=== PATIENT | female | born 1990 | race Caucasian/White ===

== ENCOUNTER 2018-01-26 08:48 | Outpatient (CLI) | payer OTHER ==
[2018-01-26] MEDS ORDERED: IOTHALAMATE MEGLUMINE 50 ML VIAL ONE (09:17)
[2018-01-26] MEDS ORDERED: GADOPENTETATE DIMEGLUMINE 5 ML VIAL IVP ONE ×2 (09:17→10:13)
[2018-01-26] MEDS ORDERED: BUFFERED LIDOCAINE 10 ML SYRINGE IU ONE (10:13)
[2018-01-26] MEDS ORDERED: IOTHALAMATE MEGLUMINE 50 ML VIAL IVP ONE (10:13)
--- NOTE | 2018-01-26 14:15 | MRI Report ---
EXAM: RIGHT SHOULDER MRI ARTHROGRAM WITH CONTRAST EXAM DATE: 01/26/2018 10:39 AM. CLINICAL HISTORY: Right shoulder pain after lifting 35 pounds. Maverick a pop. Pain with abduction. COMPARISON: None. TECHNIQUE: Multiplanar, multisequence T1-weighted and fluid-sensitive sequences of the shoulder after an arthrographic injection of dilute gadolinium, dictated under a separate exam. Other: None. FINDINGS: Acromioclavicular Region: The acromion is type II. The acromioclavicular joint is unremarkable. Ther e is no contrast or fluid in the subacromial/subdeltoid bursa. Glenohumeral Region: No subluxation. No loose bodies. The articular cartilage is unremarkable. Bone Marrow: No fracture, marrow edema or bone lesions. Labrum: The labrum is unremarkable. Biceps Tendon: The long head of the biceps tendon and biceps dickson are intact. Musculature/Rotator Cuff: The subscapularis, supraspinatus, infraspinatus, and teres minor tendons ar e intact. No edema or fatty atrophy. Other: The subcutaneous tissues are unremarkable. IMPRESSION: No MRI abnormalities in the shoulder. [facility] MUSCULOSKELETAL RADIOLOGY SECTION Referring Provider Line: [phone] SITE ID: [id number]
--- NOTE | 2018-01-26 19:59 | XRAY Report ---
RIGHT SHOULDER ARTHROGRAM PRIOR TO MRI: 01/26/2018 PROCEDURE: The nature and goals of the procedure were reviewed with the patient. The risks of infection and mild aching following the procedure were reviewed. Informed consent was obtained. Following fluoroscopic localization, sterile prep, and 1% Xylocaine/sodium bicarbonate anesthesia, a 22 gauge spinal needle was placed into the shoulder joint without difficulty. Utilizing fluoroscopic assessment and ease of injection as a guide, the standard gadolinium solution was instilled without difficulty. The patient tolerated the procedure quite well and was sent to the MR center for imaging. CONCLUSION: SUCCESSFUL RIGHT SHOULDER INJECTION PRIOR TO MRI USING 37 SECONDS OF FLUOROSCOPY TIME. ONE IMAGE SAVED. TD: 01/26/2018 16:20 LUCY
== END 2018-01-26 08:49 | disposition home or self-care (01) ==
LOC: DI 08:48
PROVIDERS: ATTEND General Practice
DX: M25.511 Pain in right shoulder (principal)
CPT/HCPCS: 23350; 73222; 77002; Q9961

== ENCOUNTER 2018-11-05 12:26 | Emergency (ER) | payer OTHER ==
[2018-11-05 12:56] LABS: BILIRUBIN,URINE NEGATIVE (NEGATIVE); GLUCOSE, URINE (UA) NEGATIVE (NEGATIVE); KETONES,URINE (UA) NEGATIVE (NEGATIVE); LEUKOCYTE ESTERASE, URINE NEGATIVE (NEGATIVE); NITRITE,URINE NEGATIVE (NEGATIVE); OCCULT BLOOD,URINE NEGATIVE (NEGATIVE); PROTEIN,URINE NEGATIVE (NEGATIVE); UROBILINOGEN,URINE 0.2 (NORMAL) E.U./dL (NORMAL)
[2018-11-05 13:02] LABS: CLARITY,URINE CLEAR (CLEAR)
[2018-11-05 13:12] LABS: BASOPHILS # (AUTO) 0.1 10^3/uL (0.0-0.1); BASOPHILS % (AUTO) 1.3 %; EOSINOPHILS # (AUTO) 0.6 10^3/uL (0.0-0.7); EOSINOPHILS % (AUTO) 7.2 %; LYMPHOCYTES # (AUTO) 2.4 10^3/uL (1.5-3.5); LYMPHOCYTES % (AUTO) 27.9 %; MEAN CORPUSCULAR HGB CONC 34.5 g/dL (32.0-36.0); MEAN CORPUSCULAR VOLUME 92.7 fL (81.0-99.0); MEAN PLATELET VOLUME 7.7 fL (7.9-10.8); MONOCYTES # (AUTO) 0.6 10^3/uL (0.0-1.0); MONOCYTES % (AUTO) 6.6 %; NEUTROPHILS # (AUTO) 4.9 10^3/uL (1.5-6.6); PLT - PLATELET COUNT 309 10^3/uL (130-450); RED BLOOD COUNT 4.37 10^6/uL (4.20-5.40); RED CELL DISTRIBUTION WIDTH 12.3 % (12.0-15.0); WHITE BLOOD COUNT 8.6 x10^3/uL (4.8-10.8)
[2018-11-05 13:26] LABS: ALBUMIN 4.3 g/dL (3.2-5.5); ALBUMIN/GLOBULIN RATIO 1.3 (1.0-2.2); BILIRUBIN,TOTAL 0.6 mg/dL (0.2-1.0); CREATININE 0.6 mg/dL (0.4-1.0); TOTAL PROTEIN 7.6 g/dL (6.7-8.2)
--- NOTE | 2018-11-05 15:18 | ED Physician Documentation ---
PD HPI FEMALE - Stated complaint Stated Complaint: BLEEDING/CRAMPING 6WKS PREG - Chief complaint Chief Complaint: Abd Pain - History obtained from History obtained from: Patient - History of Present Illness Timing - onset: Yesterday Timing - duration: Days (2) Timing - details: Gradual onset Pain level max: 0 Pain level max: 0 Associated symptoms: Pelvic pain (cramping), Vaginal bleeding. 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 She thinks she is about 4-6 weeks along. She may have had a miscarriage in August but is unsure. Increasing bleeding today. Nothing makes it better or worse. Review of Systems Ten Systems: 10 systems reviewed and negative Constitutional: denies: Fever, Chills Respiratory: denies: Cough GI: denies: Nausea, Vomiting, Diarrhea : denies: Dysuria, Frequency, Hesitancy Skin: denies: Rash Musculoskeletal: denies: Neck pain, Back pain Neurologic: denies: Headache PD PAST MEDICAL HISTORY - Past Medical History Past Medical History: Yes Endocrine/Autoimmune: HyPOthyroidism - Past Surgical History Past Surgical History: Yes HEENT: Tonsil/Adenoidectomy - Present Medications Home Medications: Ambulatory Orders Medication Instructions Recorded Confirmed Levothyroxine Sodium [Synthroid] 100 mcg PO DAILY 07/08/16 11/05/18 - Allergies Allergies/Adverse Reactions: Allergies Allergy/AdvReac Type Severity Reaction Status Date / Time No Known Drug Allergies Allergy Verified 11/05/18 15:17 - Social History Does the pt smoke?: Yes Smoking Status: Current every day smoker Does the pt drink ETOH?: Yes Does the pt have substance abuse?: No - Immunizations Immunizations are current?: Yes - POLST Patient has POLST: No PD ED PE NORMAL - Vitals Vital signs reviewed: Yes - General General: Alert and oriented X 3, No acute distress, Well developed/nourished - HEENT HEENT: Moist mucous membranes - Neck Neck: Supple, no meningeal sign - Cardiac Cardiac: RRR, Strong equal pulses - Respiratory Respiratory: No respiratory distress, Clear bilaterally - Abdomen Abdomen: Soft, Non tender, Non distended - Female Female : Pt declined - Back Back: No CVA TTP, No spinal TTP - Derm Derm: Warm and dry, No rash - Extremities Extremities: No edema - Neuro Neuro: Alert and oriented X 3 - Psych Psych: Normal mood, Normal affect Results - Vitals Vitals: Vital Signs - 24 hr 11/05/18 11/05/18 12:35 15:28 Temperature 36.6 C Heart Rate 103 H 64 Respiratory 16 14 Rate Blood Pressure 99/72 116/73 O2 Saturation 100 100 Oxygen O2 Source Room air - Labs Labs: Laboratory Tests 11/05/18 11/05/18 11/05/18 12:46 13:00 13:00 WBC 8.6 RBC 4.37 Hgb 14.0 Hct 40.5 MCV 92.7 MCH 32.0 H MCHC 34.5 RDW 12.3 Plt Count 309 MPV 7.7 L Neut # (Auto) 4.9 Lymph # (Auto) 2.4 [place] # (Auto) 0.6 Eos # (Auto) 0.6 Baso # (Auto) 0.1 Absolute Nucleated RBC 0.00 Nucleated RBC % 0.0 Sodium 129 L Potassium 3.5 Chloride 96 L Carbon Dioxide 26 Anion Gap 7.0 BUN 7 Creatinine 0.6 Estimated GFR (MDRD) 121 Glucose 92 Calcium 9.0 Total Bilirubin 0.6 AST 23 ALT 19 Alkaline Phosphatase 39 L Total Protein 7.6 Albumin 4.3 Globulin 3.3 Albumin/Globulin Ratio 1.3 Lipase 44 HCG, Quant Urine Color YELLOW Urine Clarity CLEAR Urine pH 7.0 Ur Specific [place] 1.015 Urine Protein NEGATIVE Urine Glucose (UA) NEGATIVE Urine Ketones NEGATIVE Urine Occult Blood NEGATIVE Urine Nitrite NEGATIVE Urine Bilirubin NEGATIVE Urine Urobilinogen 0.2 (NORMAL) Ur Leukocyte Esterase NEGATIVE Ur Microscopic Review NOT INDICATED Urine Culture Comments NOT INDICATED Blood Type Antibody Screen 11/05/18 11/05/18 13:00 13:00 WBC RBC Hgb Hct MCV MCH MCHC RDW Plt Count MPV Neut # (Auto) Lymph # (Auto) [place] # (Auto) Eos # (Auto) Baso # (Auto) Absolute Nucleated RBC Nucleated RBC % Sodium Potassium Chloride Carbon Dioxide Anion Gap BUN Creatinine Estimated GFR (MDRD) Glucose Calcium Total Bilirubin AST ALT Alkaline Phosphatase Total Protein Albumin Globulin Albumin/Globulin Ratio Lipase HCG, Quant 09794.00 Urine Color Urine Clarity Urine pH Ur Specific [place] Urine Protein Urine Glucose (UA) Urine Ketones Urine Occult Blood Urine Nitrite Urine Bilirubin Urine Urobilinogen Ur Leukocyte Esterase Ur Microscopic Review Urine Culture Comments Blood Type O POSITIVE Antibody Screen NEGATIVE - Rads (name of study) OB US Radiology: Prelim report reviewed, EMP read contemporaneously, See rad report (Single intrauterine gestation of undetermined viability. No pole visible. Recommend correlation with serial beta hCG and short interval follow-up ultrasound to assess viability. 2. Estimated gestational age by mean sac diameter of 5 weeks 0 days discordant with clinical dates estimation by last menstrual period of 6 weeks 5 days. 3. No evidence of perigestational hemorrhage. 4. Normal maternal adnexa. ) PD MEDICAL DECISION MAKING - ED course Complexity details: reviewed results, re-evaluated patient, considered differential, d/w patient ED course: 28-year-old female presents to the emergency department with a threatened versus miscarriage versus early . Her hCG is 15,000, she will need serial quant to determine if it is rising or falling. Also was recommended to have a repeat ultrasound next week. Ectopic precautions given at bedside. Patient counseled regarding signs and symptoms for which I believe and urgent re-evaluation would be necessary. Patient with good understanding of and agreement to plan and is comfortable going home at this time This document was made in part using voice recognition software. While efforts are made to proofread this document, sound alike and grammatical errors may occur. Departure - Departure Disposition: 01 Home, Self Care Clinical Impression: Threatened affecting intrauterine Condition: Good Instructions: ED Miscarriage Poss Follow-Up: Nishi Gould, CHAIRMAN [Primary Care Provider] - (within 2 days.) Comments: You need a repeat hCG in 2-3 days to see if your levels are going up or down. There are approximately 15,000 today. Your ultrasound may be consistent with an early but also may be consistent with a miscarriage. You should have a repeat ultrasound next week as well. Return if you worsen Discharge Date/Time: 11/05/18 15:42
--- NOTE | 2018-11-05 15:23 | Ultrasound Report ---
Reason: 6 weeks preg, vag bleed Procedure Date: 11/05/2018 Accession Number: [id number] / [id number] Procedure: US - OB First Trimester CPT Code: FULL RESULT: EXAM: FIRST TRIMESTER OBSTETRIC ULTRASOUND (Less than 11 weeks) EXAM DATE: 11/05/2018 03:04 PM. CLINICAL HISTORY: 6 weeks , vaginal bleed. LMP: 09/19/2018. COMPARISONS: None. TECHNIQUE: Transabdominal and transvaginal ultrasound examination with static image documentation. CLINICAL DATES: EGA 6 weeks 5 days with MARIAM 06/26/2019 based on last menstrual period. ASSESSMENT: Gestational Sac: Single intrauterine. Mean gestational sac diameter: 10 mm = 5 weeks 0 days. Embryo: No visible pole Yolk sac: 2 mm. Amniotic fluid: Not accurately assessed at this gestational age. Early placenta: Not visible at this gestational age. Other: No perigestational fluid collection demonstrated. MATERNAL STRUCTURES: Uterus: Retroverted. Unremarkable. Cervix: Closed. Right Ovary/Adnexa: The ovary measures 3.5 x 1.9 x 2.6 cm, volume 9.2 cc. Unremarkable. Left Ovary/Adnexa: The ovary measures 3.4 x 1.9 x 2.7 cm, volume 9.3 cc. Unremarkable. Free Fluid: None. Other: None. IMPRESSION: 1. Single intrauterine gestation of undetermined viability. No pole visible. Recommend correlation with serial beta hCG and short interval follow-up ultrasound to assess viability. 2. Estimated gestational age by mean sac diameter of 5 weeks 0 days discordant with clinical dates estimation by last menstrual period of 6 weeks 5 days. 3. No evidence of perigestational hemorrhage. 4. Normal maternal adnexa. [facility]
[2018-11-05 15:29] VITALS: BP 116/73
== END 2018-11-05 15:42 | disposition home or self-care (01) ==
LOC: ED 12:26
DX: O20.0 Threatened abortion (principal); Z3A.01 Less than 8 weeks gestation of pregnancy; F17.200 Nicotine dependence, unspecified, uncomplicated
CPT/HCPCS: 36415; 76801; 76817; 80053; 81001; 81003; 83690; 84702; 85025; 86850; 86900; 86901; 87086; 99283; 99284

== ENCOUNTER 2019-01-28 15:05 | Emergency (ER) | payer OTHER ==
--- NOTE | 2019-01-28 15:41 | ED Physician Documentation ---
History of Present Illness - Stated complaint Stated Complaint: PREG/N SYNCOPE - Chief complaint Chief Complaint: General - History obtained from History obtained from: Patient - History of Present Illness Timing: Today (G2, P1 at 18 weeks gestation, she was standing and ranks and started to feel dizzy and lightheaded and sweaty and had to sit down. And she had 3 drops of vaginal bleeding less likely urinary bleeding with urination. Now feels fine. No full syncope episode.) Review of Systems Constitutional: denies: Fever, Chills Cardiac: denies: Chest pain / pressure, Palpitations Respiratory: denies: Dyspnea, Cough GI: reports: Nausea. denies: Abdominal Pain, Vomiting, Diarrhea PD PAST MEDICAL HISTORY - Past Medical History Cardiovascular: None Respiratory: None Neuro: None Endocrine/Autoimmune: HyPOthyroidism GI: None HOSPITALITY RECRUITER: None : None HEENT: None Psych: None Musculoskeletal: None Derm: None - Past Surgical History Past Surgical History: Yes HEENT: Tonsil/Adenoidectomy - Present Medications Home Medications: Ambulatory Orders Medication Instructions Recorded Confirmed Levothyroxine Sodium [Synthroid] 100 mcg PO DAILY 07/08/16 11/05/18 - Allergies Allergies/Adverse Reactions: Allergies Allergy/AdvReac Type Severity Reaction Status Date / Time No Known Drug Allergies Allergy Verified 11/05/18 15:17 - Social History Does the pt smoke?: Yes Smoking Status: Current every day smoker Does the pt drink ETOH?: Yes Does the pt have substance abuse?: No - Immunizations Immunizations are current?: Yes - POLST Patient has POLST: No PD ED PE NORMAL - Vitals Vital signs reviewed: Yes - General General: Alert and oriented X 3, No acute distress - HEENT HEENT: PERRL, EOMI - Neck Neck: Supple, no meningeal sign, No bony TTP - Cardiac Cardiac: RRR, No murmur - Respiratory Respiratory: No respiratory distress, Clear bilaterally - Abdomen Abdomen: Normal bowel sounds, Soft, Non tender - Female Female : Other (Bedside ultrasound showed single live intrauterine with heart rate 165) - Back Back: No CVA TTP, No spinal TTP - Extremities Extremities: No edema, No calf tenderness / cord - Neuro Neuro: Alert and oriented X 3, Normal speech Results - Vitals Vitals: Vital Signs - 24 hr 01/28/19 01/28/19 15:08 17:08 Temperature 36.3 C L Heart Rate 100 83 Respiratory 16 18 Rate Blood Pressure 117/72 98/65 O2 Saturation 100 100 Oxygen O2 Source Room air - EKG (time done) 1520 Rate: Rate (enter#) (90) Rhythm: NSR [place]: Normal Intervals: Normal MD QRS: Normal Ischemia: Normal ST segments Computer interpretation: Agree with computer - Labs Labs: Laboratory Tests 01/28/19 01/28/19 01/28/19 15:54 15:54 16:00 WBC 11.6 H RBC 3.52 L Hgb 11.1 L Hct 32.3 L MCV 91.7 MCH 31.6 H MCHC 34.4 RDW 13.3 Plt Count 248 MPV 7.7 L Neut # (Auto) 8.1 H Lymph # (Auto) 2.0 [place] # (Auto) 0.8 Eos # (Auto) 0.7 Baso # (Auto) 0.0 Absolute Nucleated RBC 0.00 Nucleated RBC % 0.0 Sodium 135 Potassium 3.5 Chloride 104 Carbon Dioxide 22 Anion Gap 9.0 BUN 7 Creatinine 0.4 Estimated GFR (MDRD) 193 Glucose 96 Calcium 8.5 Total Bilirubin 0.4 AST 19 ALT 27 Alkaline Phosphatase 39 L Total Protein 6.4 L Albumin 3.3 Globulin 3.1 Albumin/Globulin Ratio 1.1 Lipase 46 Urine Color YELLOW Urine Clarity CLEAR Urine pH 7.0 Ur Specific [place] 1.015 Urine Protein NEGATIVE Urine Glucose (UA) NEGATIVE Urine Ketones NEGATIVE Urine Occult Blood NEGATIVE Urine Nitrite NEGATIVE Urine Bilirubin NEGATIVE Urine Urobilinogen 0.2 (NORMAL) Ur Leukocyte Esterase NEGATIVE Ur Microscopic Review NOT INDICATED Urine Culture Comments NOT INDICATED PD MEDICAL DECISION MAKING - ED course ED course: 28-year-old woman woman had near syncope while standing at attention, otherwise benign history and physical with reassuring ultrasound and labs and EKG. Departure - Departure Disposition: 01 Home, Self Care Clinical Impression: , Near syncope Condition: Good Record reviewed to determine appropriate education?: Yes Instructions: ED Near Syncope Vasovagal Comments: Drink plenty fluids, return for new or worsening symptoms. Rest for the rest of the day. Discharge Date/Time: 01/28/19 17:09
[2019-01-28 16:12] LABS: BILIRUBIN,URINE NEGATIVE (NEGATIVE); GLUCOSE, URINE (UA) NEGATIVE (NEGATIVE); KETONES,URINE (UA) NEGATIVE (NEGATIVE); LEUKOCYTE ESTERASE, URINE NEGATIVE (NEGATIVE); NITRITE,URINE NEGATIVE (NEGATIVE); OCCULT BLOOD,URINE NEGATIVE (NEGATIVE); PROTEIN,URINE NEGATIVE (NEGATIVE); UROBILINOGEN,URINE 0.2 (NORMAL) E.U./dL (NORMAL)
[2019-01-28 16:13] LABS: CLARITY,URINE CLEAR (CLEAR)
[2019-01-28 16:14] LABS: BASOPHILS % (AUTO) 0.4 %; EOSINOPHILS # (AUTO) 0.7 10^3/uL (0.0-0.7); EOSINOPHILS % (AUTO) 6.1 %; HGB - HEMOGLOBIN 11.1 g/dL (12.0-16.0); LYMPHOCYTES % (AUTO) 16.9 %; MEAN CORPUSCULAR HEMOGLOBIN 31.6 pg (27.0-31.0); MEAN CORPUSCULAR HGB CONC 34.4 g/dL (32.0-36.0); MEAN CORPUSCULAR VOLUME 91.7 fL (81.0-99.0); MEAN PLATELET VOLUME 7.7 fL (7.9-10.8); MONOCYTES # (AUTO) 0.8 10^3/uL (0.0-1.0); MONOCYTES % (AUTO) 7.2 %; NEUTROPHILS # (AUTO) 8.1 10^3/uL (1.5-6.6); NEUTROPHILS % (AUTO) 69.4 %; PLT - PLATELET COUNT 248 10^3/uL (130-450); RED BLOOD COUNT 3.52 10^6/uL (4.20-5.40); RED CELL DISTRIBUTION WIDTH 13.3 % (12.0-15.0); WHITE BLOOD COUNT 11.6 x10^3/uL (4.8-10.8)
[2019-01-28 16:26] LABS: ALBUMIN 3.3 g/dL (3.2-5.5); ALBUMIN/GLOBULIN RATIO 1.1 (1.0-2.2); BILIRUBIN,TOTAL 0.4 mg/dL (0.2-1.0); CALCIUM 8.5 mg/dL (8.5-10.3); CREATININE 0.4 mg/dL (0.4-1.0); TOTAL PROTEIN 6.4 g/dL (6.7-8.2)
[2019-01-28 17:09] VITALS: BP 98/65
== END 2019-01-28 17:09 | disposition home or self-care (01) ==
LOC: ED 15:05
DX: O99.89 Other specified diseases and conditions complicating pregnancy, childbirth and the puerperium (principal); R55 Syncope and collapse; O99.282 Endocrine, nutritional and metabolic diseases complicating pregnancy, second trimester; E03.9 Hypothyroidism, unspecified; O99.332 Smoking (tobacco) complicating pregnancy, second trimester; F17.200 Nicotine dependence, unspecified, uncomplicated; Z3A.18 18 weeks gestation of pregnancy
CPT/HCPCS: 36415; 80053; 81001; 81003; 83690; 85025; 87086; 93005; 99283

== ENCOUNTER 2019-03-12 09:41 | Outpatient (CLI) | payer OTHER ==
[2019-03-12 10:42] VITALS: BP 100/61
--- NOTE | 2019-03-12 11:18 | PROVIDER PROGRESS NOTE ---
- HPI Current : Current EDU 07/04/19 Gestation 23 Weeks and 5 Days 2 Para 1 Vital Signs Temperature 36.9 C 03/12/19 10:29 Heart Rate 92 03/12/19 10:29 Respiratory Rate 16 03/12/19 10:29 Blood Pressure 100/61 03/12/19 10:29 O2 Saturation 100 03/12/19 10:29 Temperature 36.9 C 03/12/19 10:29 Heart Rate 92 03/12/19 10:29 Respiratory Rate 16 03/12/19 10:29 Blood Pressure 100/61 03/12/19 10:29 O2 Saturation 100 03/12/19 10:29 Chief complaint: Intrauterine at 23 weeks and 5 days gestation to cramping History chief complaint: This is well-developed, well-nourished, 28-year-old white female who is 2 para 1-0-0-1 with an MARIAM of 07/04/2019 making her approximately 23 weeks and 5 days gestation for over the past 2 days she has been having increasing problems with bilateral pelvic cramping that will so metimes radiate into her lower back. She denies any vaginal bleeding or fluid. She was seen by her PCP who could find nothing wrong inside her home. She then called the [facility] but stated that they really did nothing to explain anything to her help her so she cameShe denies any fevers, chills, vomiting, constipation or diarrhea. She denies any dyspareunia.She denies any dysuria or hematuria - Procedures Findings: External monitor:No contractions are appreciated. The baseline of heart tones approximately 150 bpm. Heart: Heart has regular rate and rhythm without murmur Lungs: Lungs clear to auscultation bilaterally without wheezes, rales or rhonchi Abdomen: The abdomen is soft, pliable and nontender.Roberto Carlos sign is negative. Uterus: The uterus is gravid soft and nontender. No contractions are appreciated. Pelvic: The fetus is not engaged in the pelvis. No parts could be palp ated in the pelvis. The cervix is quite posterior and long and thick. It is not dilated.Bladder and urethra are in the midline. The bladder was nontender. - Plan Plan: Impression: 1. Intrauterine at 23 weeks 5 days gestation 2. Musculoskeletal tenderness due to increasing gestational age Plan: To be complete will obtain a urine for evaluation and send it for culture and sensitivity if the urinalysis indicates that that is needed.We talked about stretching exercises for her low back. We talked about warm moist heat and massages.The patient was reassured.As long as she does well she will follow-[facility] scheduled [facility].
[2019-03-12 12:27] LABS: BILIRUBIN,URINE NEGATIVE (NEGATIVE); GLUCOSE, URINE (UA) NEGATIVE (NEGATIVE); KETONES,URINE (UA) NEGATIVE (NEGATIVE); LEUKOCYTE ESTERASE, URINE NEGATIVE (NEGATIVE); NITRITE,URINE NEGATIVE (NEGATIVE); OCCULT BLOOD,URINE NEGATIVE (NEGATIVE); PH,URINE 7.5 PH (5.0-7.5); PROTEIN,URINE NEGATIVE (NEGATIVE); UROBILINOGEN,URINE 0.2 (NORMAL) E.U./dL (NORMAL)
[2019-03-12 12:29] LABS: CLARITY,URINE HAZY (CLEAR)
[2019-03-12 13:00] LABS: AMORPHOUS SEDIMENT,UR Few /LPF; BACTERIA,URINE Rare /HPF (None Seen); RBC,URINE 0-5 /HPF (0-5); SQUAMOUS EPITHELIAL CELL,UR RARE Squamous (<= Few)
== END 2019-03-12 12:00 | disposition home or self-care (01) ==
LOC: WFO 09:41 → FBP 09:43 → WFO 12:00
PROVIDERS: ATTEND Obstetrics & Gynecology
DX: O99.89 Other specified diseases and conditions complicating pregnancy, childbirth and the puerperium (principal); Z3A.23 23 weeks gestation of pregnancy
CPT/HCPCS: 81001; 87086; 99212; 99213

== ENCOUNTER 2019-04-19 10:22 | Outpatient (CLI) | payer OTHER | END 2019-04-19 10:23 | disposition home or self-care (01) | LOC: LAB 10:22 | PROVIDERS: ATTEND Obstetrics & Gynecology | DX: E03.9 Hypothyroidism, unspecified (principal); J02.9 Acute pharyngitis, unspecified | CPT/HCPCS: 36415; 84443; 87070 ==

== ENCOUNTER 2019-04-19 10:57 | Outpatient (CLI) | payer OTHER | END 2019-04-19 23:59 | disposition home or self-care (01) | LOC: LAB.R 10:57 | PROVIDERS: ATTEND Obstetrics & Gynecology | DX: J02.9 Acute pharyngitis, unspecified (principal) | CPT/HCPCS: 87070 ==

== ENCOUNTER 2019-05-25 08:12 | Outpatient (CLI) | payer OTHER ==
--- NOTE | 2019-05-25 09:51 | Ultrasound Report ---
Reason: UTERINE SIZE DATE DISCREPANCY Procedure Date: 05/25/2019 Accession Number: [id number] / [id number] Procedure: US - OB F/U or Repeat CPT Code: FULL RESULT: EXAM: FOLLOW-UP OBSTETRICAL ULTRASOUND EXAM DATE: 05/25/2019 09:04 AM. CLINICAL HISTORY: Uterine size date discrepancy. COMPARISON: 11/05/2018. TECHNIQUE: Real-time sonographic evaluation of the fetus performed by the hatchery employee. Transabdominal imaging only. Multiple parts counter representative static images were saved for review. DATING: Established EGA 34 weeks 2 days with MARIAM 07/04/2019 based on provider . EGA 35 weeks 2 days with MARIAM 06/27/2019 based on the current ultrasound. GENERAL EVALUATION Castro . Cardiac activity: 153 bpm. movement: Visualized. Presentation: Cephalic. Placenta: Anterior position. Amniotic fluid: Normal. GIOVANNI 14.3 cm. MVP 3.8 cm. BIOMETRY Bi-Parietal Diameter (BPD): 8.86 cm, 35 weeks 6 days. Head Circumference (HC): 31.49 cm, 35 weeks 2 days. Abdominal Circumference (AC): 32.79 cm, 36 weeks 5 days. Femur Length (FL): 6.44 cm, 33 weeks 2 days. Estimated Weight: 2714 g, 81.2 percentile. ANATOMY: There is bilateral renal pelviectasis measuring 8.1 mm on the right and 6.2 mm on the left. MATERNAL STRUCTURES: The cervical length is 4.8 cm. IMPRESSION: 1. Castro live intrauterine with gestational age 35 weeks 2 days based on current ultrasound. 2. Estimated weight is within expected limits for assigned dating. [facility]
== END 2019-05-25 08:13 | disposition home or self-care (01) ==
LOC: DI 08:12
PROVIDERS: ATTEND Obstetrics & Gynecology
DX: O26.843 Uterine size-date discrepancy, third trimester (principal); Z3A.35 35 weeks gestation of pregnancy
CPT/HCPCS: 76816

== ENCOUNTER 2019-06-11 08:00 | Outpatient (CLI) | payer OTHER | END 2019-06-11 23:59 | disposition home or self-care (01) | LOC: LAB.R 08:00 | PROVIDERS: ATTEND Obstetrics & Gynecology | DX: Z36.85 Encounter for antenatal screening for Streptococcus B (principal) | CPT/HCPCS: 87797 ==

== ENCOUNTER 2019-06-28 16:44 | Inpatient (IN) | payer OTHER ==
[2019-06-28] MEDS ORDERED: SODIUM CHLORIDE FLUSH 0.9% 10 ML SYRINGE ONE (17:07)
[2019-06-28] MEDS ORDERED: METHYLERGONOVINE 0.2 MG/ML AMP IM PRN (17:25)
[2019-06-28] MEDS ORDERED: CARBOPROST TROMETHAMINE 250 MCG/ML AMP IM PRN (17:25)
[2019-06-28] MEDS ORDERED: SODIUM CHLORIDE FLUSH 0.9% 10 ML SYRINGE IVP PRN (17:25)
[2019-06-28] MEDS ORDERED: METOCLOPRAMIDE 10 MG/2 ML VIAL IVP PRN (17:25)
[2019-06-28] MEDS ORDERED: ONDANSETRON 4 MG/2 ML VIAL IVP PRN (17:25)
[2019-06-28] MEDS ORDERED: miSOPROStoL 200 MCG TABLET PR PRN (17:25)
[2019-06-28] MEDS ORDERED: fentaNYL 100 MCG/2 ML VIAL IVP PRN (17:25)
[2019-06-28] MEDS ORDERED: OXYTOCIN/SODIUM CHLORIDE 500 ML IV PRN (17:25)
[2019-06-28] MEDS ORDERED: LIDOCAINE 1% 50 ML MDV TD ONE (17:31)
[2019-06-28] MEDS ORDERED: miSOPROStoL 100 MCG TABLET ONE (17:40)
[2019-06-28] MEDS: miSOPROStoL 100 MCG TABLET BC SCH (17:42)
[2019-06-28 17:43] LABS: BASOPHILS % (AUTO) 0.4 %; HGB - HEMOGLOBIN 8.5 g/dL (12.0-16.0)
[2019-06-28 17:48] LABS: EOSINOPHILS % (AUTO) 2.9 %; LYMPHOCYTES % (AUTO) 12.6 %; MEAN CORPUSCULAR HEMOGLOBIN 24.7 pg (27.0-31.0); MEAN CORPUSCULAR HGB CONC 30.2 g/dL (32.0-36.0); MEAN CORPUSCULAR VOLUME 81.7 fL (81.0-99.0); MEAN PLATELET VOLUME 9.7 fL (7.9-10.8); MONOCYTES % (AUTO) 9.5 %; NEUTROPHILS % (AUTO) 70.4 %; PLT - PLATELET COUNT 247 10^3/uL (130-450); RED BLOOD COUNT 3.44 10^6/uL (4.20-5.40); RED CELL DISTRIBUTION WIDTH 16.2 % (12.0-15.0); WHITE BLOOD COUNT 13.9 x10^3/uL (4.8-10.8)
[2019-06-28 17:49] LABS: ABNORMAL LYMPHS % (MANUAL) 0 %
[2019-06-28 18:23] LABS: BAND NEUTROPHILS % (MANUAL) 2 %; EOSINOPHILS # (MANUAL) 0.3 10^3/uL (0-0.7); LYMPHOCYTES # (MANUAL) 2.2 10^3/uL (1.5-3.5); LYMPHOCYTES % (MANUAL) 16 %; METAMYELOCYTES % (MANUAL) 1 %; MONOCYTES # (MANUAL) 0.6 10^3/uL (0.0-1.0); MYELOCYTES % (MANUAL) 2 %
[2019-06-28 18:26] LABS: DIFFERENTIAL COMMENT MANUAL DIFFERENTIAL; PLATELET ESTIMATE, MANUAL NORMAL (130-450,000) (NORMAL); PLATELET MORPHOLOGY NORMAL APPEARANCE (NORMAL)
[2019-06-29] MEDS: LACTATED RINGERS 1,000 ML IV SCH ×4 (03:39→21:49)
[2019-06-29] MEDS ORDERED: OXYTOCIN/SODIUM CHLORIDE 500 ML IV ONE (04:01)
[2019-06-29] MEDS ORDERED: ROPIVACAINE 0.2% 200 MG/100 ML BAG EP ONE (04:01)
--- NOTE | 2019-06-29 04:13 | ANESTHESIA ---
Pre-Anesthesia VS, & Labs - Diagnosis Active labor - Procedure vaginal delivery Vital Signs: Temp Pulse Resp BP Pulse Ox 36.7 C 101 H 18 115/74 98 06/28/19 16:57 06/28/19 16:57 06/28/19 16:57 06/28/19 16:57 06/28/19 16:57 Height 5 ft 3 in Weight (kg) 87.09 kg Body Mass Index 24.7 - NPO Other (clear liquids) - Is Patient ?: Yes - Lab Results Current Lab Results: Laboratory Tests 06/28/19 17:15: WBC 13.9 H, RBC 3.44 L, Hgb 8.5 L, Hct 28.1 L, MCV 81.7, MCH 24.7 L, MCHC 30.2 L, RDW 16.2 H, Plt Count 247, MPV 9.7, Neut # (Auto) Not Reportable, Lymph # (Auto) Not Reportable, [place] # (Auto) Not Reportable, Eos # (Auto) Not Reportable, Baso # (Auto) Not Reportable, Absolute Nucleated RBC Not Reportable, Total Counted 100, Band Neuts % (Manual) 2, Abnorm Lymph % (Manual) 0, Metamyelocytes % 1 H, Myelocytes % 2 H, Nucleated RBC % Not Reportable, Neutrophils # (Manual) 10.4 H, Lymphocytes # (Manual) 2.2, Monocytes # (Manual) 0.6, Eosinophils # (Manual) 0.3, Basophils # (Manual) 0.0, Differential Comment MANUAL DIFFERENTIAL, WBC Morphology NORMAL APPEARANCE, Platelet Estimate NORMAL (130-450,000), Platelet Morphology NORMAL APPEARANCE, RBC Morph Micro Appear 1+ TEARDROP CELLS Fish Bones: 06/28/19 17:15 Home Medications and Allergies Active Medications Acetaminophen (Tylenol) 650 mg PO Q6H PRN PRN Reason: Pain or Fever Carboprost Tromethamine (Hemabate) 250 mcg IM ONCE PRN PRN Reason: Post- Hemorrhage Stop: 06/30/19 17:24 Fentanyl (Fentanyl) 50 mcg IVP Q1H PRN PRN Reason: PAIN Lactated Ringer's (Lr) 1,000 mls @ 100 mls/hr IV .Q10H CHAGO Last Admin: 06/29/19 03:39 Dose: 100 mls/hr Oxytocin/Sodium Chloride (Pitocin/Sodium Chloride) 500 mls @ 999 mls/hr IV PRN PRN; Protocol PRN Reason: POST- HEMORR PREVENTION Levothyroxine Sodium (Synthroid) 150 mcg PO QDAC [facility] Methylergonovine Maleate (Methergine Inj) 0.2 mg IM Q4H PRN PRN Reason: Post- Hemorrhage Metoclopramide HCl (Reglan Inj) 10 mg IVP Q6H PRN PRN Reason: Nausea / Vomiting Misoprostol (Cytotec) 50 mcg BC Q4HR [facility] Last Admin: 06/28/19 17:42 Dose: 50 mcg Misoprostol (Cytotec) 800 mcg NC ONCE PRN PRN Reason: Post- Hemorrhage Stop: 06/30/19 17:24 Ondansetron HCl (Zofran Inj) 4 mg IVP Q4HR PRN PRN Reason: Nausea / Vomiting Sodium Chloride (Normal Saline Flush 0.9%) 10 ml IVP 0100,0900,1700 CHAGO Sodium Chloride (Normal Saline Flush 0.9%) 10 ml IVP PRN PRN PRN Reason: NEEDED PER PROVIDER ORDERS Last Admin: 06/29/19 00:18 Dose: 10 ml Levothyroxine Sodium [Synthroid] 100 mcg PO DAILY 07/08/16 Allergies/Adverse Reactions: Allergies Allergy/AdvReac Type Severity Reaction Status Date / Time No Known Drug Allergies Allergy Verified 11/05/18 15:17 Anes History & Medical History - Anesthetic History Anesthesia Complications: reports: No previous complications - Medical History Cardiovascular: reports: None Pulmonary: reports: None Gastrointestinal: reports: None Urinary: reports: None Neuro: reports: None Musculoskeletal: reports: None Endocrine/Autoimmune: reports: HyPOthyroidism Blood Disorders: reports: None Skin: reports: None Smoking Status: Former smoker (Quit 9 months ago) Psychosocial: reports: No issues indicated - Surgical History Eyes Ears Nose Throat (EENT): Tonsil/Adenoidectomy Exam General: Alert, Oriented x3, Cooperative, No acute distress Dental: WNL Mouth Openin Fingerbreadth Neck Mobility: Normal Mallampati classification: I Thyromental Distance: greater than 6 cm Plan Anesthesia Type: Epidural Consent for Procedure(s) Verified and Reviewed: Yes Code Status: Attempt Resuscitation ASA classification: 2-Mild systemic disease Is this case an emergency?: No
[2019-06-29] MEDS ORDERED: ONDANSETRON 4 MG/2 ML VIAL IVP PRN (04:35)
[2019-06-29] MEDS ORDERED: LACTATED RINGERS 500 ML IV ONE (04:35)
[2019-06-29] MEDS ORDERED: ePHEDrine 50 MG/ML VIAL IVP PRN (04:35)
[2019-06-29] MEDS ORDERED: NALOXONE 0.4 MG/ML VIAL IVP PRN (04:35)
[2019-06-29] MEDS: LEVOTHYROXINE 75 MCG TABLET PO SCH (06:30)
[2019-06-29] MEDS: miSOPROStoL 100 MCG TABLET BC SCH ×2 (06:41→06:42)
--- NOTE | 2019-06-29 08:49 | PROVIDER PROGRESS NOTE ---
Labor Progress Note - Uterine Monitoring Uterine Monitoring Mode: positive: External toco Contraction Frequency (min/apart): 4 min Contraction Intensity: positive: Moderate Uterine Resting Tone: positive: Soft - Monitoring Monitor Mode: positive: External ultrasound Heart Rate Baseline: 130 Heart Rate Variability: positive: Moderate (6-25 bmp) Accelerations: positive: Present, 15x15 Decelerations: positive: None Strip Review: positive: Category I - Vaginal Exam Dilation (in cm): 5 Effacement (%): 25% Station: -3 Cervical Position: Midposition - Labor Progress Note Labor Progress Note/Additional Text: baby has withdrawn the head. Start pitocin then AROM when engaged.
--- NOTE | 2019-06-29 11:00 | HISTORY & PHYSICAL EXAMINATION ---
DATE OF SERVICE: 06/29/2019 Physician: Michel Mendoza MD IDENTIFICATION: Patient is a 28-year-old G2, P1 female whose EDC was determined to be 07/04/2019. Patient relates this was determined with an early ultrasound at roughly 8-10 weeks' EGA. CHIEF COMPLAINT: Elective induction. HISTORY OF PRESENT ILLNESS: Patient is being induced because the father of the baby is about to be deployed with the [facility] [employer] She is 39 weeks and 2 days at this time, and for this reason, we plan to proceed on with induction. Her OB care started at the [facility] at roughly 8 weeks' EGA. She had the vast majority of her care up until 29 weeks, which she transferred us. Her OB history has been significant only in that she has hypothyroid. Her labs show her to be O positive. She is rubella immune; she is negative for syphilis, hepatitis B, chlamydia, HIV. Her 50 gram Glucola was 99. Her free T4 was 0.88. Quad screen is noted to be negative. She had a GBS culture, which was noted to be negative. Her varicella titer was noted to be positive. Hepatitis C was also positive. PAST MEDICAL HISTORY: Hypothyroidism. SURGICAL HISTORY 1. She has had her tonsils removed. 2. Sinus surgery. ALLERGIES: NONE KNOWN. CURRENT MEDICATIONS 1. Tylenol. 2. Synthroid 150 mcg. 3. vitamins. HABITS: Patient denies use of alcohol, tobacco, or street or addictive drugs. FAMILY HISTORY: Positive for brother with diabetes, father with lung cancer, mother with thyroid disorder. PHYSICAL EXAMINATION GENERAL: Patient is a well-developed, well-nourished white female. She is in no acute distress. She has her epidural in place at this time. VITAL SIGNS: Temperature 36.7, pulse 101, blood pressure 115/74, respirations 18. HEENT: Pupils are equal and round. Extraocular muscles are intact. Thyroid is not palpably enlarged. HEART: Regular rate and rhythm without murmurs. LUNGS: Lung guillen are clear without rales or wheezes. ABDOMEN: Gravid. Cervical examination shows her to be 5 cm, long cervix, and the head is -3 and not well engaged. Vertex presentation. IMPRESSION 1. A 28-year-old G2, P1 female whose last menstrual period makes her 39 weeks and 2 days. 2. Elective induction for social reasons. PLAN: Patient underwent cervical ripening with Cytotec. She developed strong contractions. It appears as though the head is somewhat raised out of the pelvis since initiation of induction. We will initiate Pitocin to try and drive the head down in the pelvis, at which time we will rupture membranes. She already has an epidural in place for labor analgesia. TD: 06/29/2019 08:48 LUCY
[2019-06-29] MEDS: OXYTOCIN/SODIUM CHLORIDE 500 ML IV SCH ×2 (11:42→12:22)
[2019-06-29] MEDS: ROPIVACAINE 0.2% 200 MG/100 ML BAG EP PRN (12:20)
--- NOTE | 2019-06-29 12:34 | PROVIDER PROGRESS NOTE ---
Labor Progress Note - Uterine Monitoring Contraction Frequency (min/apart): 4+ Contraction Intensity: positive: Mild to moderate Uterine Resting Tone: positive: Soft - Monitoring Monitor Mode: positive: External ultrasound Heart Rate Baseline: 130 Heart Rate Variability: positive: Moderate (6-25 bmp) Accelerations: positive: Present, 15x15 Decelerations: positive: None Strip Review: positive: Category I - Vaginal Exam Station: Ballotable Cervical Position: Midposition - Labor Progress Note Labor Progress Note/Additional Text: Head is not applied to the Cx Start Pit.
[2019-06-29] MEDS: ACETAMINOPHEN 325 MG TABLET PO PRN ×2 (13:12→19:49)
--- NOTE | 2019-06-29 17:12 | PROVIDER PROGRESS NOTE ---
Labor Progress Note - Uterine Monitoring Contraction Frequency (min/apart): 3 Contraction Intensity: positive: Moderate Uterine Resting Tone: positive: Soft - Monitoring Monitor Mode: positive: External ultrasound Heart Rate Baseline: 130 Heart Rate Variability: positive: Moderate (6-25 bmp) Accelerations: positive: Present, 15x15 Decelerations: positive: None Strip Review: positive: Category I - Vaginal Exam Dilation (in cm): 5 Effacement (%): 50 Station: Ballotable Cervical Position: Midposition - Labor Progress Note Labor Progress Note/Additional Text: Head not engaging. membrains intact. not progressing. stop pitocin adn rest after 1800 restart Pit in the AM.
[2019-06-29] MEDS ORDERED: ZOLPIDEM 5 MG TABLET PO PRN (20:50)
--- NOTE | 2019-06-29 20:50 | PROVIDER PROGRESS NOTE ---
Labor Progress Note - Uterine Monitoring Contraction Frequency (min/apart): 2-3 Contraction Intensity: positive: Moderate Uterine Resting Tone: positive: Soft - Monitoring Monitor Mode: positive: External ultrasound Heart Rate Baseline: 135 Heart Rate Variability: positive: Moderate (6-25 bmp) Accelerations: positive: Present, 15x15 Decelerations: positive: None Strip Review: positive: Category I (5) - Vaginal Exam Dilation (in cm): 5 Effacement (%): 75% Station: -2 Cervical Position: Midposition - Labor Progress Note Labor Progress Note/Additional Text: Pt has had little to no Sleep. will stop Pit over night allow to sleep
--- NOTE | 2019-06-29 21:50 | CONSULTATION NOTE ---
Consultation Report: Dr. Mendoza ordered to stop the epidural and restart in the morning. Epidural was infusing with 0.2% Ropivicaine at 10 ml/hr. The pump was stopped, epidural cath capped and the epidural infusion tubing capped with a needle.
--- NOTE | 2019-06-30 08:27 | PROVIDER PROGRESS NOTE ---
Labor Progress Note - Uterine Monitoring Contraction Frequency (min/apart): 0 Contraction Intensity: positive: Mild to moderate Uterine Resting Tone: positive: Soft - Monitoring Monitor Mode: positive: External ultrasound Heart Rate Baseline: 125 Heart Rate Variability: positive: Moderate (6-25 bmp) Accelerations: positive: Present, 15x15 Decelerations: positive: None Strip Review: positive: Category I - Vaginal Exam Dilation (in cm): 5 Effacement (%): 75% Station: -2 Cervical Position: Midposition - Labor Progress Note Labor Progress Note/Additional Text: Pt rested well. able to eat. feels rested. restarted PIT. AROMed cleat fluid.
[2019-06-30] MEDS: ROPIVACAINE 0.2% 200 MG/100 ML BAG EP PRN (09:51)
[2019-06-30] MEDS ORDERED: LIDOCAINE MPF 2%-EPI 1:200000 20 ML VIAL ONE ×2 (09:54→15:09)
[2019-06-30] MEDS: LACTATED RINGERS 1,000 ML IV SCH ×2 (10:08→13:03)
--- NOTE | 2019-06-30 10:11 | CONSULTATION NOTE ---
Consultation Report: This epidural was stopped on 06/29/19 at about 2100 per Md request. Request received to restart the epidural. Epidural restarted after cleaning both epidural catheter tip and the tubing with alcohol prep pad.. Negative for both CSF and blood upon aspiration. Flushed with 5cc NS, flushes without any resistance. 5cc of lidocain 2% with epi injected and epidural started at 10 cc/hr. Sensory level of T10 achieved.
[2019-06-30] MEDS: SODIUM CHLORIDE FLUSH 0.9% 10 ML SYRINGE IVP SCH ×6 (12:29→18:09)
[2019-06-30] MEDS: miSOPROStoL 100 MCG TABLET BC SCH ×7 (12:29→18:10)
[2019-06-30] MEDS: LEVOTHYROXINE 75 MCG TABLET PO SCH (12:39)
--- NOTE | 2019-06-30 13:03 | CONSULTATION NOTE ---
Consultation Report: Call to [phone] for ineffective pain management r/t epidural. New midline pain with contractions. Sensory level assessed at L2, full motor control of B LE. Last pump bolus of 10cc delivered 34 mins prior. 5cc 2% Lidocaine w/epi with 5cc NS given in 2 bolus doses of 5cc. Pain down to 3/10 from 9/10 after 5 mins. Sensory level assessed at T10, B LE "heavier" to pt. VSS t/o.
--- NOTE | 2019-06-30 16:56 | DELIVERY NOTE ---
Delivery Note - Labor Labor: positive: Induced by oxytocin - Infant Delivery Method Delivery Method: positive: Spontaneous vaginal delivery - Cervical Ripening Method Cervical Ripening Method: positive: Misoprostil - Presentation Presentation: positive: Vertex, OA - occiput anterior - Nuchal Cord Nuchal Cord: positive: None - Anesthetic Anesthetic Type: - Amniotic Fluid Description Amniotic Fluid Description: positive: Clear - Laceration Laceration: positive: 2nd degree, Other (midline) - Suture Suture Type: positive: Vicryl Suture Size: positive: 3-0 - Delivery Outcome Delivery Outcome: positive: Livebirth - [place] : positive: Placed in direct skin contact with mother, Suctioned, Stimulated, Warmed, May used [place] sex: positive: Female - Cord Cord: positive: 3 vessels - Placenta Placenta: positive: Intact, Expressed - Estimated Blood Loss Estimated Blood Loss (in cc): 150 - Post Delivery Events Post Delivery Events: positive: No post delivery events - Delivery Comments (Free Text/Narrative) Delivery Comments (Free Text/Narrative): STAGE I: Patient is a 28 yo at 39w2d EGA admitted for induction of labor. Initial SVE was 1/long/high. She received one dose of misoprostol 50 mcg BC x1. She then was augmented with pitocin, reaching a max dose of 15 mU/min on 06/29/19. She was then rested overnight. At 8:15 am, she underwent artificial rupture of membranes, notable for passage of clear fluid. Started on pitocin, reaching a maximum dose of 9 mU/min. Epidural for pain management. GBS negative, antibiotics were not indicated. She was completely dilated at 14:30 on 06/30/19. She labored down for one hour. Category I tracing throughout Stage I. STAGE II: After laboring down for one hour, fetus was noted to be in ROT position. Fetus was manually rotated to OA position. Patient pushed well for 20 minuted do delivery a viable female from direct OA position with compound presentation. Left hand was delivered with head. Infant was delivered to mother's abdomen. Cord clamping was delayed until cessation of pulsation. It was then clamped x2 and cut. No nuchal cord. Apgars 8/9, weight pending. STAGE III: Placenta delivered with gentle downward traction on the umbilical cord and manual expression. It was examined and sound to be intact. A small midline 2nd degree laceration was noted. It was repaired with 3-0 Vicryl in the usual sterile fashion. EBL 250 cc. Good hemostasis was noted. Procedure was well tolerated and without complication.
[2019-06-30] MEDS ORDERED: LACTATED RINGERS 1,000 ML IV SCH ×2 (17:00→19:00)
[2019-06-30] MEDS: IBUPROFEN 600 MG TABLET PO SCH (18:51)
[2019-06-30] MEDS: ACETAMINOPHEN 500 MG TABLET PO SCH (18:51)
[2019-06-30] MEDS: oxyCODONE 5 MG TABLET PO PRN (20:58)
[2019-06-30] MEDS: DOCUSATE SODIUM 100 MG CAPSULE PO SCH (21:44)
[2019-07-01] MEDS: IBUPROFEN 600 MG TABLET PO SCH ×3 (01:54→15:15)
[2019-07-01] MEDS: ACETAMINOPHEN 500 MG TABLET PO SCH ×2 (03:31→12:24)
[2019-07-01] MEDS: oxyCODONE 5 MG TABLET PO PRN ×4 (03:32→17:56)
[2019-07-01] MEDS: LEVOTHYROXINE 75 MCG TABLET PO SCH (06:52)
[2019-07-01] MEDS: DOCUSATE SODIUM 100 MG CAPSULE PO SCH (08:47)
[2019-07-01 16:26] VITALS: BP 117/72
--- NOTE | 2019-07-01 18:30 | Labor Flowsheet ---
Labor Flowsheet Datetime Report Generated by CPN: 07/01/2019 18:30 Datetime: 07/01/2019 16:23 VITAL SIGNS NBP Sys/Evelin/Mean (mmHg): 117 : 72 : 81 Pulse: 78 LaborFlag: Labor Datetime: 07/01/2019 03:24 SpO2 (%): 99 Datetime: 06/30/2019 15:50 UTERINE ACTIVITY Monitor Mode: External Frequency (min): 1.5-2 Quality: Strong Duration (sec): 50-80 Pattern: Normal: <= 5 Contractions in 10 Minutes Resting Tone (Palpate): Relaxed Contraction Comments: Pushing contractions ASSESSMENT A Monitor Mode: Telemetry FHR Baseline Rate : 135 Variability: Moderate 6-25 bpm Accelerations: 15X15 Comments: Poor FHR tracing while pushing Oxygen Method: Room Air Datetime: 06/30/2019 15:37 STAGE 2 Pushing: Urge to Push Pushing Position: Pushing with Contractions; Pushing Lithotomy Pushing Progress: Descent with Pushing Datetime: 06/30/2019 15:35 PATIENT CARE IV/Blood Work: IV Bolus Given ml @ 250 Datetime: 06/30/2019 15:30 Decelerations: None Category: Category II Datetime: 06/30/2019 15:02 Anesthesia Comments: Pump settings changed Datetime: 06/30/2019 15:01 Patient Position/Activity: Right Tilt; Low Fowlers Datetime: 06/30/2019 15:00 Respirations: 19 Temperature (C): 36.9 Anesthesia Level Check: T12 Datetime: 06/30/2019 14:59 Epidural Procedure Other: Redose Datetime: 06/30/2019 14:56 COMMUNICATION Communication: Provider at Bedside Communication Comments: A Anderson, GRANITE INSTALLER, at bedside Datetime: 06/30/2019 14:47 Provider Notified (Name): A Anderson, GRANITE INSTALLER Datetime: 06/30/2019 14:45 PAIN Pain Scale: 5 Pain Presence: Intermittent Pain Type: Cramping Pain Location: Abdomen Pain Coping: Breathing Through Contractions Datetime: 06/30/2019 14:44 Monitor Interventions for FHR: Ultrasound Adjusted Datetime: 06/30/2019 14:43 Patient Care 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 McSorley Datetime: 06/30/2019 14:29 Station: 0 Vaginal Exam Comments: rim of cervix felt right lateral Datetime: 06/30/2019 13:24 Pain Assessment Comments: "maybe a little pressure in my bottom" Datetime: 06/30/2019 13:23 Monitor Interventions for UA: [place] Adjusted Datetime: 06/30/2019 13:15 Vital Sign Comments: BP cuff on upper lateral arm Datetime: 06/30/2019 12:53 Comfort Measures: Breathing/Relaxation; Family Support Datetime: 06/30/2019 12:00 Temperature Route: Axillary Datetime: 06/30/2019 11:57 Amniotic Fluid Amount: Moderate Datetime: 06/30/2019 11:00 MEDICATIONS Pitocin (milliunits): Increased to @ 8 Datetime: 06/30/2019 10:41 Effacement (%): 75 Datetime: 06/30/2019 09:46 Epidural Procedure: Test Dose; Loading Dose Datetime: 06/30/2019 08:15 Membrane Status: Ruptured Membranes Rupture Method: Artificial Amniotic Fluid Color: Clear Amniotic Fluid Odor: Normal Cervix, Consistency: Soft Datetime: 06/30/2019 07:35 MATERNAL ASSESSMENT Level of Consciousness: Fully Conscious Headache: Denies Breath Sounds, Left: Clear and Equal Breath Sounds, Right: Clear and Equal Nausea/Vomiting: Denies RUQ Epigastric Pain: Denies Datetime: 06/30/2019 03:26 Hygiene: Underpad Changed; Peripad Changed; Gown Changed; Linens Changed I/O Interventions: Ice Chips Given; Clear Liquids Given Datetime: 06/30/2019 00:00 FHR Baseline Changes: No Baseline Change Datetime: 06/29/2019 21:50 Medication Comments: Ambien 5mg PO given to help pt get some rest Datetime: 06/29/2019 19:02 Provider Reviewed Strip: No Notification Reason: Labor Status Datetime: 06/29/2019 18:57 Cervix, Position: Midposition Datetime: 06/29/2019 18:30 Stage of : Labor Datetime: 06/29/2019 14:00 TEACHING Instructional Method: Verbal; Verbalized Understanding Plan of Care: Vaginal Delivery Unit Routine: Monitoring; IV Pumps Labor/Induction: Labor Stages; Interventions; Activity Pain Management: Comfort Measures Related: Nutrition; Hydration; Activity and Rest Datetime: 06/29/2019 13:12 Analgesics/Sedatives: Tylenol (mg) @ 650 Datetime: 06/29/2019 13:02 Pain Relief Measures: Comfort Measures Datetime: 06/29/2019 11:39 Medications: Pitocin Datetime: 06/29/2019 07:42 DTR's/Clonus: No Clonus Datetime: 06/29/2019 05:57 Oxygen Amount (LPM): 10 Datetime: 06/29/2019 04:11 PROCEDURE TIME OUT Procedure Verify: Correct Patient Identity; Correct Side and Site are Marked; Accurate Procedure Co nsent Form; Agreement on Procedure to be Done; Correct Patient Position; Relevant Images and Results are Properly Labeled and Displayed; Addressed Need to Administer Antibiotics or Fluids for Irrigation ; Safety Precautions Based on Patient History or Medication Use ANESTHESIA Anesthesia Plans: Epidural Epidural Positioning: Sitting Datetime: 06/28/2019 18:36 Membranes Ruptured Date/Time: 06/30/2019 08:15
--- NOTE | 2019-07-05 19:44 | PROVIDER PROGRESS NOTE ---
Subjective - Prog Note Date Prog Note Date: 07/01/19 Prog Note Time: 11:33 - Subjective Subjective: Patient reporting significant after pain and perineal pain unrelieved with ibuprofen and tylenol. Requesting something stronger. Had small 2nd degree lacer ation. Otherwise, up and ambulating, tolerating po, and voiding. Wants pm discharge if is cleared at 24 hours . Objective - Vital Signs/Intake & Output Reviewed Vital Signs: Yes - Objective General Appearance: positive: No acute distress Eyes Bilateral: positive: Normal inspection Respiratory: positive: Chest non-tender, No respiratory distress Cardiovascular: positive: Regular rate & rhythm Abdomen: positive: Non-tender, Other (FF below umbi) Skin: positive: Color nml Extremities: positive: Non-tender, No pedal edema Neurologic/Psychiatric: positive: Oriented x3 - Lab Results Fish Bones: 06/28/19 17:15 Assessment/Plan - Problem List (1) Vaginal delivery Impression: 28 yo PPD#1 s/p Meeting goals for discharge although she is requesting stronger medication for cramping and perineal pain. Perineum healing well. Given oxycodone 5 mg po Q4H prn pain. Reviewed it is only to be used for breakthrough pain. Requesting discharge in the pm if infant is cleared. Reviewed discharge instructions and follow-up DC to home pending pediatric clearance of infant.
--- NOTE | 2019-07-05 19:50 | DISCHARGE SUMMARY ---
Discharge Summary Admit Date: 06/30/19 Discharge Date: 07/01/19 Discharging Provider: Kacey Vernon Condition at Discharge: Good Discharge Disposition: 01 Home, Self Care - DIAGNOSES Admission Diagnoses: IUP at 39w2d EGA - HPI History of Present Illness: Patient is a 28 yo at 39w2d EGA admitted for elective induction of labor. Initial SVE was 1/long/high. - HOSPITAL COURSE Hospital Course: Admitted for observation on 06/28/19. Underwent cervical ripening as noted below. Admitted to inpatient status with AROM on 06/30/19. STAGE I: Patient is a 28 yo at 39w2d EGA admitted for induction of labor. Initial SVE was 1/long/high. She received one dose of misoprostol 50 mcg BC x1. She then was augmented with pitocin, reaching a max dose of 15 mU/min on 06/29/19. She was then rested overnight. At 8:15 am, she underwent artificial rupture of membranes, notable for passage of clear fluid. Started on pitocin, reaching a maximum dose of 9 mU/min. Epidural for pain management. GBS negative, antibiotics were not indicated. She was completely dilated at 14:30 on 06/30/19. She labored down for one hour. Category I tracing throughout Stage I. STAGE II: After laboring down for one hour, fetus was noted to be in ROT position. Fetus was manually rotated to OA position. Patient pushed well for 20 minuted do delivery a viable female infant from direct OA position with compound presentation. Left hand was delivered with head. Infant was delivered to mother's abdomen. Cord clamping was delayed until cessation of pulsation. It was then clamped x2 and cut. No nuchal cord. Apgars 8/9, weight pending. STAGE III: Placenta delivered with gentle downward traction on the umbilical cord and manual expression. It was examined and sound to be intact. A small midline 2nd degree laceration was noted. It was repaired with 3-0 Vicryl in the usual sterile fashion. EBL 250 cc. Good hemostasis was noted. Procedure was well tolerated and without complication. By PPD#1, patient was reporting abdominal pain and perineal pain that was not adequately treated with ibuprofen and tylenol. She used oxycodone 5 mg po Q4H for breakthrough pain. Otherwise, course was uncomplicated. Rh positive and Rubella immune. Requested discharge to home once was cleared by Pediatrics at 24 hours . Routine discharge instructions were given. - ALLERGIES Allergies/Adverse Reactions: Allergies Allergy/AdvReac Type Severity Reaction Status Date / Time No Known Drug Allergies Allergy Verified 11/05/18 15:17 - MEDICATIONS Home Medications: Ambulatory Orders Medication Instructions Recorded Confirmed Levothyroxine Sodium [Synthroid] 100 mcg PO DAILY 07/08/16 11/05/18 - LABS Result Diagrams: 06/28/19 17:15 - FOLLOW UP Follow Up: 6 weeks - TIME SPENT Time Spent in Discharge (Minutes): 30
== END 2019-07-01 18:00 | disposition home or self-care (01) | DRG 807 ==
LOC: WFO 16:44 → FBP 16:48 → WFO 17:24 → UNDOADMOB 17:25 → FBP 17:25 → INTOOBSV 06-30 15:58 → OBSVTOIN 06-30 15:58
PROVIDERS: ADMIT Obstetrics & Gynecology; ATTEND Obstetrics & Gynecology
PROC: 10E0XZZ Delivery of Products of Conception, External Approach (ICD-10-PCS; principal; 2019-06-30)
PROC: 0KQM0ZZ Repair Perineum Muscle, Open Approach (ICD-10-PCS; 2019-06-30)
DX: O99.284 Endocrine, nutritional and metabolic diseases complicating childbirth (principal); Z37.0 Single live birth; E03.9 Hypothyroidism, unspecified; O70.1 Second degree perineal laceration during delivery; O32.2XX0 Maternal care for transverse and oblique lie, not applicable or unspecified; O32.6XX0 Maternal care for compound presentation, not applicable or unspecified; Z3A.39 39 weeks gestation of pregnancy
CPT/HCPCS: 85025; 96361; 96374; A9270; G0378; J7120

== ENCOUNTER 2019-10-02 14:41 | Emergency (ER) | payer OTHER ==
[2019-10-02 14:48] VITALS: BP 125/77
[2019-10-02] MEDS ORDERED: ONDANSETRON 4 MG/2 ML VIAL IVP STA (15:30)
[2019-10-02] MEDS ORDERED: SODIUM CHLORIDE 0.9% 1,000 ML IV ONE (15:30)
--- NOTE | 2019-10-02 15:30 | ED Physician Documentation ---
PD HPI NVD - Stated complaint Stated Complaint: N/V/D - Chief complaint Chief Complaint: Abd Pain - History obtained from History obtained from: Patient - History of Present Illness Timing - onset: Today Timing - duration: Hours (10) Timing - details: Abrupt onset Associated symptoms: Abdominal pain, Dizzy. No: Fever, Hematemesis, Melena, Hematochezia, Dysuria Contributing factors: No: Sick contact, Bad food, Alcohol use Recently seen: Not recently seen - Additonal information Additional information: This is a 29-year-old woman who presents with complaints that she began vomiting around 5 AM and has not been able to keep anything down. She feels very thirsty but as soon as she drinks water she vomits it back up. She did not eat anything that she thinks may have made her sick and her daughter is not sick at home. She does have pain in the left upper and right upper quadrants with some back pain. That started yesterday. She denies prior abdominal surgery. She had a vaginal delivery 3 months ago but is not breast-feeding. She is felt dizzy but has not passed out. She is also having watery diarrhea without blood in it. She has urinated today. No sore throat no coughing. Review of Systems Constitutional: denies: Fever Nose: denies: Rhinorrhea / runny nose Throat: denies: Sore throat Respiratory: denies: Cough GI: reports: Nausea, Vomiting, Diarrhea. 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 : None HEENT: None Psych: None Musculoskeletal: None Derm: None - Past Surgical History Past Surgical History: Yes HEENT: Tonsil/Adenoidectomy - Present Medications Home Medications: Ambulatory Orders Medication Instructions Recorded Confirmed Levothyroxine Sodium [Synthroid] 150 mcg ORAL QDAC 10/02/19 10/02/19 Ondansetron Odt [Zofran] 4 mg TL Q6H PRN #10 tablet 10/02/19 methocarbamoL [Methocarbamol] 500 mg PO DAILY PRN 10/02/19 10/02/19 - Allergies Allergies/Adverse Reactions: Allergies Allergy/AdvReac Type Severity Reaction Status Date / Time No Known Drug Allergies Allergy Verified 10/02/19 14:48 - Social History Does the pt smoke?: Yes Smoking Status: Former smoker (Quit 9 months ago) Does the pt drink ETOH?: Yes Does the pt have substance abuse?: No - Immunizations Immunizations are current?: Yes - POLST Patient has POLST: No PD ED PE NORMAL - Vitals Vital signs reviewed: Yes - General General: Alert and oriented X 3, No acute distress, Well developed/nourished, Other (Patient is holding an emesis bag with clear vomitus in it.) - HEENT HEENT: Atraumatic, PERRL, Other (No scleral icterus) - Cardiac Cardiac: RRR, No murmur - Respiratory Respiratory: No respiratory distress, Clear bilaterally - Abdomen Abdomen: Normal bowel sounds, Soft, Non tender - Derm Derm: Normal color, Warm and dry, No rash - Neuro Neuro: Alert and oriented X 3, 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 2-12 intact, No motor deficit, No sensory deficit, Normal speech - Psych Psych: Normal mood, Normal affect Results - Vitals Vitals: Vital Signs - 24 hr 10/02/19 14:47 Temperature 36.1 C L Heart Rate 121 H Respiratory 18 Rate Blood Pressure 125/77 O2 Saturation 98 Oxygen O2 Source Room air - Labs Labs: Laboratory Tests 10/02/19 10/02/19 10/02/19 15:35 15:35 15:35 WBC 8.7 RBC 5.05 Hgb 14.7 Hct 44.8 MCV 88.7 MCH 29.1 MCHC 32.8 RDW 15.7 H Plt Count 283 MPV 9.5 Neut # (Auto) 7.9 H Lymph # (Auto) 0.2 L Simpson # (Auto) 0.3 Eos # (Auto) 0.2 Baso # (Auto) 0.1 Absolute Nucleated RBC 0.00 Nucleated RBC % 0.0 Sodium 139 Potassium 4.1 Chloride 101 Carbon Dioxide 25 Anion Gap 13.0 BUN 15 Creatinine 0.7 Estimated GFR (MDRD) 100 Glucose 118 H Calcium 9.5 Total Bilirubin 1.0 AST 29 ALT 34 Alkaline Phosphatase 71 Total Protein 8.2 Albumin 4.4 Globulin 3.8 Albumin/Globulin Ratio 1.2 Lipase 27 Serum HCG, Qual NEGATIVE PD MEDICAL DECISION MAKING - ED course Complexity details: reviewed results, re-evaluated patient, d/w patient ED course: Patient had a liter of saline and for Zofran IV. Her labs show no evidence of pancreatitis and she has a normal white blood cell count. Her abdomen was soft. She is no longer vomiting was able to keep down some ice chips. She says her whole body just feels really achy. She is discharged with a prescription for Zofran and instructions to slowly advance her diet to prevent her setting off more vomiting. Follow-up if needed. Departure - Departure Disposition: 01 Home, Self Care Clinical Impression: Vomiting Qualifiers: Vomiting type: unspecified Vomiting Intractability: non-intractable Nausea presence: with nausea Qualified Code(s): R11.2 - Nausea with vomiting, unspecified Diarrhea Qualifiers: Diarrhea type: unspecified type Qualified Code(s): R19.7 - Diarrhea, unspecified Condition: Good Instructions: ED Diet Vomiting Diarrhea Follow-Up: Nishi Gould ARNP [Primary Care Provider] - Prescriptions: Ondansetron Odt [Zofran] 4 mg TL Q6H PRN #10 tablet PRN Reason: Nausea / Vomiting Comments: You have Zofran to use dissolvable if needed for persistent nausea or vomiting. Advance her diet slowly with ice chips, small sips of water, Jell-O, chicken broth or chicken noodle soup and the brat diet. Follow-up for reevaluation if he continues vomiting and cannot keep anything down particularly if you feel really dizzy or pass out.
[2019-10-02 15:40] LABS: BASOPHILS # (AUTO) 0.1 10^3/uL (0.0-0.1); BASOPHILS % (AUTO) 0.6 %; EOSINOPHILS # (AUTO) 0.2 10^3/uL (0.0-0.7); EOSINOPHILS % (AUTO) 1.7 %; HGB - HEMOGLOBIN 14.7 g/dL (12.0-16.0); LYMPHOCYTES # (AUTO) 0.2 10^3/uL (1.5-3.5); LYMPHOCYTES % (AUTO) 2.4 %; MEAN CORPUSCULAR HEMOGLOBIN 29.1 pg (27.0-31.0); MEAN CORPUSCULAR HGB CONC 32.8 g/dL (32.0-36.0); MEAN CORPUSCULAR VOLUME 88.7 fL (81.0-99.0); MEAN PLATELET VOLUME 9.5 fL (7.9-10.8); MONOCYTES # (AUTO) 0.3 10^3/uL (0.0-1.0); MONOCYTES % (AUTO) 3.7 %; NEUTROPHILS # (AUTO) 7.9 10^3/uL (1.5-6.6); NEUTROPHILS % (AUTO) 91.4 %; PLT - PLATELET COUNT 283 10^3/uL (130-450); RED BLOOD COUNT 5.05 10^6/uL (4.20-5.40); RED CELL DISTRIBUTION WIDTH 15.7 % (12.0-15.0); WHITE BLOOD COUNT 8.7 x10^3/uL (4.8-10.8)
[2019-10-02 15:54] LABS: ALBUMIN 4.4 g/dL (3.2-5.5); ALBUMIN/GLOBULIN RATIO 1.2 (1.0-2.2); CALCIUM 9.5 mg/dL (8.5-10.3); CREATININE 0.7 mg/dL (0.4-1.0); TOTAL PROTEIN 8.2 g/dL (6.7-8.2)
[2019-10-02 16:10] LABS: HCG,QUALITATIVE BLOOD NEGATIVE
== END 2019-10-02 17:49 | disposition home or self-care (01) ==
LOC: ED 14:41
DX: R11.2 Nausea with vomiting, unspecified (principal); R19.7 Diarrhea, unspecified; Z87.891 Personal history of nicotine dependence
CPT/HCPCS: 36415; 80053; 83690; 84703; 85025; 96361; 96374; 99284

== ENCOUNTER 2019-10-20 12:39 | Outpatient (CLI) | payer OTHER ==
[2019-10-20 15:44] LABS: FREE T4 (FREE THYROXINE) 0.53 ng/dL (0.58-1.64)
== END 2019-10-20 12:40 | disposition home or self-care (01) ==
LOC: LAB 12:39
PROVIDERS: ATTEND Obstetrics & Gynecology
DX: O92.70 Unspecified disorders of lactation (principal); F41.9 Anxiety disorder, unspecified
CPT/HCPCS: 36415; 84439; 84443

== ENCOUNTER 2019-10-27 11:58 | Outpatient (CLI) | payer OTHER | END 2019-10-27 11:59 | disposition home or self-care (01) | LOC: LAB 11:58 | PROVIDERS: ATTEND Obstetrics & Gynecology | DX: E03.9 Hypothyroidism, unspecified (principal); F41.9 Anxiety disorder, unspecified | CPT/HCPCS: 36415; 86376; 86800 ==

== ENCOUNTER 2020-06-08 12:14 | Outpatient (CLI) | payer OTHER ==
--- NOTE | 2020-06-08 16:44 | Ultrasound Report ---
PROCEDURE: OB First Trimester INDICATIONS: SUPERVISION OF NORMAL OUTSIDE/PRIOR DATING DATA: Last menstrual period (LMP): 04/02/2020. LMP-based estimated date of delivery (MARIAM): 01/07/2021. First dating scan (date and location): 06/08/2020. Estimated date of delivery (MARIAM) from first dating scan: 01/27/2021. TECHNIQUE: Real-time scanning was performed of the fetus and maternal pelvic organs, with image documentation. COMPARISON: None. FINDINGS: Embryo: Single living intrauterine gestation with an estimated sonographic gestational age of approx imately 6 weeks and 5 days based off crown-rump length measuring 0.8 cm. heart rate measured 12 8 bpm. Measurement variability in dating: +/- 4 weeks by LMP, +/- 7 days by mean sac diameter (use before 6 weeks gestation if crown-rump length not able to be measured), +/- 5 days by crown-rump length (6-12 weeks gestation). Maternal organs: Ovaries demonstrate presence of a right corpus luteal cyst measuring 2.4 cm in maxi mum dimension. Right maternal kidney demonstrates mild hydronephrosis. There is a moderately distende d urinary bladder. Maternal cervix appears closed. IMPRESSION: Single living intrauterine gestation with an estimated sonographic gestational age of approximately 6 weeks and 5 days. Clinical and imaging follow-up recommended. Right corpus luteal cyst measuring 2.4 cm. Maternal right kidney with mild hydronephrosis and moderately distended urinary bladder. Reviewed by: Vicente Woods MD on 06/08/2020 4:42 PM PDT Approved by: Vicente Woods MD on 06/08/2020 4:42 PM PDT Station ID: [id number]
== END 2020-06-08 12:15 | disposition home or self-care (01) ==
LOC: DI 12:14
PROVIDERS: ATTEND Advanced Practice Midwife
DX: Z34.91 Encounter for supervision of normal pregnancy, unspecified, first trimester (principal)
CPT/HCPCS: 36415; 76801; 81599; 84443; 85025; 86592; 86762; 86787; 86803; 86850; 86900; 86901; 87340; 87389

== ENCOUNTER 2020-06-08 12:45 | Outpatient (CLI) | payer OTHER ==
[2020-06-08 13:05] LABS: BASOPHILS # (AUTO) 0.1 10^3/uL (0.0-0.1); BASOPHILS % (AUTO) 1.3 %; EOSINOPHILS # (AUTO) 0.7 10^3/uL (0.0-0.7); EOSINOPHILS % (AUTO) 8.4 %; HGB - HEMOGLOBIN 13.4 g/dL (12.0-16.0); LYMPHOCYTES # (AUTO) 2.2 10^3/uL (1.5-3.5); LYMPHOCYTES % (AUTO) 25.3 %; MEAN CORPUSCULAR HEMOGLOBIN 30.5 pg (27.0-31.0); MEAN CORPUSCULAR HGB CONC 33.4 g/dL (32.0-36.0); MEAN CORPUSCULAR VOLUME 91.3 fL (81.0-99.0); MEAN PLATELET VOLUME 9.5 fL (7.9-10.8); MONOCYTES # (AUTO) 0.9 10^3/uL (0.0-1.0); NEUTROPHILS # (AUTO) 4.8 10^3/uL (1.5-6.6); NEUTROPHILS % (AUTO) 54.5 %; PLT - PLATELET COUNT 268 10^3/uL (130-450); RED BLOOD COUNT 4.39 10^6/uL (4.20-5.40); RED CELL DISTRIBUTION WIDTH 12.8 % (12.0-15.0); WHITE BLOOD COUNT 8.7 x10^3/uL (4.8-10.8)
[2020-06-09 12:14] LABS: HEPATITIS B SURFACE ANTIGEN NON-REACTIVE (NON-REACTIVE)
[2020-06-09 12:42] LABS: HEPATITIS C ANTIBODY NON-REACTIVE (NON-REACTIVE)
[2020-06-09 13:25] LABS: HIV AG/AB 4TH GEN NON-REACTIVE (NON-REACTIVE)
== END 2020-06-08 12:46 | disposition home or self-care (01) ==
LOC: LAB 12:45
PROVIDERS: ATTEND Advanced Practice Midwife
DX: Z34.90 Encounter for supervision of normal pregnancy, unspecified, unspecified trimester (principal)
CPT/HCPCS: 36415; 81599; 84443; 85025; 86762; 86787; 86803; 86850; 86900; 86901; 87340; 87389

== ENCOUNTER 2020-06-13 13:02 | Emergency (ER) | payer OTHER ==
[2020-06-13 13:11] VITALS: BP 100/64
--- NOTE | 2020-06-13 13:51 | ED Physician Documentation ---
History of Present Illness - Stated complaint Stated Complaint: LT ANKLE INJ - Chief complaint Chief Complaint: Trauma Ext - Additonal information Additional information: 29-year-old female presents to the ER for evaluation of left ankle pain. She reports that she was jogging about 1 week ago when she felt pain in the medial and posterior ankle. She was unable to finish the job and had to walk about half a mile home. Since then she has had pain with ambulation and reports mild swelling. She has taken ibuprofen with minimal relief of pain. no hx of previous injury Patient is noted to be incidentally . Approximately 8 weeks. . Patient denies lower pelvic pain, vaginal bleeding cramping. She does consent to an x-ray of the ankle though she is . Review of Systems Constitutional: reports: Reviewed and negative Ears: reports: Reviewed and negative Nose: reports: Reviewed and negative GI: reports: Reviewed and negative : reports: Reviewed and negative Skin: reports: Reviewed and negative Musculoskeletal: reports: Joint pain (left ankle) Neurologic: reports: Reviewed and negative PD PAST MEDICAL HISTORY - Past Medical History Cardiovascular: None Respiratory: None Neuro: None Endocrine/Autoimmune: HyPOthyroidism GI: None DIRECTOR INDUSTRIAL RELATIONS: None : None HEENT: None Psych: None Musculoskeletal: None Derm: None - Past Surgical History Past Surgical History: Yes HEENT: Tonsil/Adenoidectomy - Present Medications Home Medications: Ambulatory Orders Medication Instructions Recorded Confirmed Levothyroxine Sodium [Synthroid] 150 mcg ORAL QDAC 10/02/19 10/02/19 Ondansetron Odt [Zofran] 4 mg TL Q6H PRN #10 tablet 10/02/19 methocarbamoL [Methocarbamol] 500 mg PO DAILY PRN 10/02/19 10/02/19 - Allergies Allergies/Adverse Reactions: Allergies Allergy/AdvReac Type Severity Reaction Status Date / Time No Known Drug Allergies Allergy Verified 06/13/20 13:06 - Social History Does the pt smoke?: Yes Smoking Status: Former smoker (Quit 9 months ago) Does the pt drink ETOH?: Yes Does the pt have substance abuse?: No - Immunizations Immunizations are current?: Yes - POLST Patient has POLST: No PD ED PE EXPANDED - General General: Alert, No acute distress - Extremities Extremities: Left ankle (mild tenderness just below medial malleolous. no swelling or erythema. Full ROM with passive flexion. mildly antalgic gait, but bears nearly full weight) Results - Vitals Vitals: Vital Signs - 24 hr 06/13/20 13:06 Temperature 36.9 C Heart Rate 82 Respiratory 14 Rate Blood Pressure 100/64 O2 Saturation 100 Oxygen O2 Source Room air - Rads (name of study) left ankle Radiology: EMP read indepedently (No acute fracture or dislocation) PD MEDICAL DECISION MAKING - ED course Complexity details: reviewed results, considered differential, d/w patient ED course: 29-year-old female presents to the emergency department for 1 week of left medial ankle pain that began when she was running 1 week ago. Patient's exam is relatively reassuring and she is able to bear nearly full weight. No swelling erythema or fevers to suggest an infected joint. The injury and pain began while running I suspect she has a mild ankle sprain. The x-ray per my read shows no obvious deformity or fracture. Patient was given an Kenny wrap and recommended nonweightbearing for the next 4 to 5 days to help with pain. I advised her to not take ibuprofen in the setting of her and instead to ice the ankle and use Tylenol. Patient is to follow-up with primary provider. Emergent return precautions discussed Departure - Departure Disposition: 01 Home, Self Care Clinical Impression: Left ankle pain Qualifiers: Chronicity: acute Qualified Code(s): M25.572 - Pain in left ankle and joints of left foot Condition: Stable Record reviewed to determine appropriate education?: Yes Instructions: ED Sprain Ankle W X Ray Follow-Up: Claudette Mann MD [Primary Care Provider] - Comments: Silvia the ankle x-ray does not show anything obvious. I suspect that you have sprained the ankle when you were running. I do recommend that you wear the Kenny wrap when out of bed and use the crutches for the next 4 to 5 days. I would be nonweightbearing on the ankle until your pain consistently improves. Because you are do not take ibuprofen. Instead take Tylenol for pain. You may take 500 mg 3-4 times a day. If at any point you develop increased pain have redness or fevers of the ankle return for a second look
--- NOTE | 2020-06-13 14:25 | XRAY Report ---
PROCEDURE: Ankle 3 View LT INDICATIONS: pain for one week with ambulation TECHNIQUE: 3 views of the ankle were acquired. COMPARISON: None FINDINGS: Bones: No fractures or dislocations. Ankle mortise is normally aligned. No suspicious bony lesions . Soft tissues: No tibiotalar joint effusion. Achilles tendon appears normal. IMPRESSION: No trauma found, a definite source of current pain is not seen. Reviewed by: Delroy Fan MD on 06/13/2020 2:24 PM PDT Approved by: Delroy Fan MD on 06/13/2020 2:24 PM PDT Station ID: [id number]
== END 2020-06-13 14:14 | disposition home or self-care (01) ==
LOC: ED 13:02
DX: M25.572 Pain in left ankle and joints of left foot (principal); Z33.1 Pregnant state, incidental; Z87.891 Personal history of nicotine dependence
CPT/HCPCS: 99282; 99283

== ENCOUNTER 2020-07-21 16:43 | Emergency (ER) | payer OTHER ==
[2020-07-21 16:56] VITALS: BP 123/68
--- NOTE | 2020-07-21 17:18 | ED Physician Documentation ---
PD HPI ABD PAIN - Stated complaint Stated Complaint: ABD PX - Chief complaint Chief Complaint: Abd Pain - History obtained from History obtained from: Patient - History of Present Illness Timing - onset: Other (G3 at 13 weeks, her daughter accidentally stepped on her low abdomen at home just prior to arrival. 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 : None HEENT: None Psych: None Musculoskeletal: None Derm: None - Past Surgical History Past Surgical History: Yes HEENT: Tonsil/Adenoidectomy - Present Medications Home Medications: Ambulatory Orders Medication Instructions Recorded Confirmed Levothyroxine Sodium [Synthroid] 150 mcg ORAL QDAC 10/02/19 10/02/19 Ondansetron Odt [Zofran] 4 mg TL Q6H PRN #10 tablet 10/02/19 methocarbamoL [Methocarbamol] 500 mg PO DAILY PRN 10/02/19 10/02/19 - Allergies Allergies/Adverse Reactions: Allergies Allergy/AdvReac Type Severity Reaction Status Date / Time No Known Drug Allergies Allergy Verified 07/21/20 16:53 - Social History Does the pt smoke?: Yes Smoking Status: Former smoker (Quit 9 months ago) Does the pt drink ETOH?: Yes Does the pt have substance abuse?: No - Immunizations Immunizations are current?: Yes - POLST Patient has POLST: No PD ED PE NORMAL - Vitals Vital signs reviewed: Yes - General General: Alert and oriented X 3, No acute distress - Abdomen Abdomen: Normal bowel sounds, Soft, Non tender - Female Female : Other (Bedside ultrasound shows single live intrauterine with Pottle positive motion and no free fluid) - Neuro Neuro: Alert and oriented X 3, Normal speech Results - Vitals Vitals: Vital Signs - 24 hr 07/21/20 16:53 Temperature 36.5 C Heart Rate 86 Respiratory 18 Rate Blood Pressure 123/68 O2 Saturation 99 Oxygen O2 Source Room air Departure - Departure Disposition: 01 Home, Self Care Clinical Impression: Abdominal contusion Qualifiers: Encounter type: initial encounter Qualified Code(s): S30.1XXA - Contusion of abdominal wall, initial encounter Qualifiers: Weeks of gestation: 13 weeks Qualified Code(s): Z3A.13 - 13 weeks gestation of Condition: Good Record reviewed to determine appropriate education?: Yes Instructions: ED Preg Established Normal Sxs Comments: Return if worsening, routine care otherwise.
== END 2020-07-21 17:21 | disposition home or self-care (01) ==
LOC: ED 16:43
DX: O99.891 Other specified diseases and conditions complicating pregnancy (principal); S30.1XXA Contusion of abdominal wall, initial encounter; W50.0XXA Accidental hit or strike by another person, initial encounter; Y93.89 Activity, other specified; Z87.891 Personal history of nicotine dependence; Z3A.13 13 weeks gestation of pregnancy
CPT/HCPCS: 99281; 99283

== ENCOUNTER 2020-08-11 11:38 | Outpatient (CLI) | payer OTHER ==
[2020-08-11 12:33] LABS: BILIRUBIN,URINE NEGATIVE (NEGATIVE); GLUCOSE, URINE (UA) NEGATIVE (NEGATIVE); KETONES,URINE (UA) NEGATIVE (NEGATIVE); LEUKOCYTE ESTERASE, URINE NEGATIVE (NEGATIVE); MUDS CUTOFF CONCENTRATIONS CUTOFF CONC BELOW:; NITRITE,URINE NEGATIVE (NEGATIVE); OCCULT BLOOD,URINE NEGATIVE (NEGATIVE); PROTEIN,URINE NEGATIVE (NEGATIVE); UROBILINOGEN,URINE 0.2 (NORMAL) E.U./dL (NORMAL)
[2020-08-11 12:34] LABS: CLARITY,URINE CLEAR (CLEAR)
[2020-08-11 12:40] LABS: BACTERIA,URINE None Seen /HPF (None Seen); RBC,URINE None Seen /HPF (0-5); SQUAMOUS EPITHELIAL CELL,UR NONE SEEN (<= Few)
[2020-08-11 12:43] LABS: AMPHETAMINE SCREEN,URINE NEGATIVE (NEGATIVE); BENZODIAZEPINES SCREEN, URINE NEGATIVE (NEGATIVE); COCAINE SCREEN URINE NEGATIVE (NEGATIVE); METHADONE SCREEN, URINE NEGATIVE (NEGATIVE); METHAMPHETAMINES SCREEN, URINE NEGATIVE (NEGATIVE); OPIATE SCREEN, URINE NEGATIVE (NEGATIVE); OXYCODONE SCREEN, URINE NEGATIVE (NEGATIVE); PROPOXYPHENE SCREEN, URINE NEGATIVE (NEGATIVE); TRICYCLIC ANTIDEPRESSANT,URINE NEGATIVE (NEGATIVE)
== END 2020-08-11 11:39 | disposition home or self-care (01) ==
LOC: LAB 11:38
PROVIDERS: ATTEND Advanced Practice Midwife
DX: Z34.90 Encounter for supervision of normal pregnancy, unspecified, unspecified trimester (principal); Z36.89 Encounter for other specified antenatal screening
CPT/HCPCS: 36415; 80306; 81001; 81003; 81220; 81511; 81599; 87086

== ENCOUNTER 2020-09-10 08:43 | Outpatient (CLI) | payer OTHER ==
--- NOTE | 2020-09-10 11:42 | Ultrasound Report ---
PROCEDURE: OB Detailed Eval INDICATIONS: SUPERVISION OF NORMAL OUTSIDE/PRIOR DATING DATA: Last menstrual period (LMP): 04/02/2020. LMP-based estimated date of delivery (MARIAM): 01/07/2021. First dating scan (date and location): 06/08/2020. Estimated date of delivery (MARIAM) from first dating scan: 01/27/2021. TECHNIQUE: Real-time scanning was performed of the fetus, with image documentation and biometric measurements. Endovaginal scanning: Not performed. COMPARISON: OB ultrasound 06/08/2020 FINDINGS: General: A single living intrauterine gestation is present. Presentation: Variable Placenta: Placental position is posterior, without previa. Amniotic fluid index: 19.5 cm, 89th percentile for gestational age. (Largest pocket 5.3 cm). heart rate: 147 beats per minute. Maternal cervical canal: 4 cm long; normal length is 2.5 cm or more. biometrics: Biparietal diameter: 4.8 cm, 20 weeks 3 days Head circumference: 17.9 cm, 20 weeks 2 days Abdominal circumference: 15.8 cm, 20 weeks 6 days Femur length: 3.2 cm, 20 weeks 0 days Estimated gestational age from initial scan: 20 weeks 1 day Composite gestational age from present scan: 20 weeks 5 days Estimated weight and percentile: 356 g, 64th percentile Measurement variability in biometric dating: +/- 10 days from 12-20 weeks gestation, +/- 2 weeks from 20-30 weeks gestation, +/- 3 weeks at 30 weeks gestation or later. Anatomic survey: Neuro: Ventricles are normal at less than 10 mm. Cisterna magna is normal at 3-11 mm. Cerebellum i s normal in size and morphology. Nuchal skin fold: Normal at less than 6 mm between 14 and 20 weeks gestational age. Face: Nose and lips, facial profile are normal. Spine: No evidence for spina bifida. Heart: 4-chambered heart is present, with normal ventricular outflow tracts. Diaphragm: Diaphragm is intact. Stomach: Left-sided stomach is present. Kidneys: No hydronephrosis. Normal is less than 5 mm in 2nd trimester, less than 7 mm in 3rd trimester. Cord: 3 vessel cord has orthotopic insertion. Bladder: Normal in size. Extremities: All 4 extremities are visualized. IMPRESSION: 1. Castro living intrauterine at 20 weeks 5 days based on today's ultrasound. This is co ncordant with the first trimester ultrasound dating. There is expected interval growth. Fetus is in t he 64th percentile for weight. 2. Normal placenta. Amniotic fluid is within normal limits. 3. Normal and complete anatomic survey. Reviewed by: Kin Jessica MD on 09/10/2020 11:41 AM PST Approved by: Kin Jessica MD on 09/10/2020 11:41 AM PST Station ID: [id number]
== END 2020-09-10 08:44 | disposition home or self-care (01) ==
LOC: DI 08:43
PROVIDERS: ATTEND Obstetrics & Gynecology
DX: Z34.92 Encounter for supervision of normal pregnancy, unspecified, second trimester (principal)

== ENCOUNTER 2020-11-14 09:30 | Outpatient (CLI) | payer OTHER ==
[2020-11-14 10:45] LABS: HCT - HEMATOCRIT 33.2 % (37.0-47.0); HGB - HEMOGLOBIN 10.6 g/dL (12.0-16.0); MEAN CORPUSCULAR HEMOGLOBIN 29.4 pg (27.0-31.0); MEAN CORPUSCULAR HGB CONC 31.9 g/dL (32.0-36.0); MEAN CORPUSCULAR VOLUME 92.2 fL (81.0-99.0); MEAN PLATELET VOLUME 9.5 fL (7.9-10.8); RED BLOOD COUNT 3.6 10^6/uL (4.20-5.40); RED CELL DISTRIBUTION WIDTH 13.7 % (12.0-15.0); WHITE BLOOD COUNT 11.4 x10^3/uL (4.8-10.8)
[2020-11-14 11:21] LABS: THYROID STIMULATING HORMONE 0.06 uIU/mL (0.34-5.60)
[2020-11-14 11:57] LABS: FREE T4 (FREE THYROXINE) 0.77 ng/dL (0.58-1.64)
== END 2020-11-14 09:31 | disposition home or self-care (01) ==
LOC: LAB 09:30
PROVIDERS: ATTEND Obstetrics & Gynecology
DX: O99.280 Endocrine, nutritional and metabolic diseases complicating pregnancy, unspecified trimester (principal); E06.3 Autoimmune thyroiditis
CPT/HCPCS: 36415; 82950; 84439; 84443; 85027

== ENCOUNTER 2020-11-16 19:44 | Observation (INO) | payer OTHER ==
[2020-11-16 21:24] LABS: BILIRUBIN,URINE NEGATIVE (NEGATIVE); CLARITY,URINE CLEAR (CLEAR); GLUCOSE, URINE (UA) NEGATIVE (NEGATIVE); KETONES,URINE (UA) NEGATIVE (NEGATIVE); LEUKOCYTE ESTERASE, URINE NEGATIVE (NEGATIVE); NITRITE,URINE NEGATIVE (NEGATIVE); OCCULT BLOOD,URINE NEGATIVE (NEGATIVE); PROTEIN,URINE NEGATIVE (NEGATIVE); UROBILINOGEN,URINE 0.2 (NORMAL) E.U./dL (NORMAL)
[2020-11-16] MEDS ORDERED: TERBUTALINE 1 MG/ML VIAL SUBQ ONE (22:23)
[2020-11-16] MEDS ORDERED: LACTATED RINGERS 500 ML IV ONE (22:23)
[2020-11-16] MEDS ORDERED: SODIUM CHLORIDE FLUSH 0.9% 10 ML SYRINGE IVP PRN (22:23)
[2020-11-16] MEDS ORDERED: diphenhydrAMINE 25 MG CAPSULE PO PRN (22:28)
--- NOTE | 2020-11-16 22:49 | HISTORY & PHYSICAL EXAMINATION ---
Chief Complaint - Chief Complaint Chief Complaint: intermittent back and pelvic pain in History of Present Illness - Admitted From Admitted From:: home - History of Present Illness HPI Comment/Other: Patient is a 30 yo at 29+5 wga here with abdominal pain and back pain in . Patient reports that pain started at approximately 1 pm today and has increased through the afternoon. Pain is mainly on the right side and through her back. Intermittent, lasts for about 60 seconds and then stops. No LOF/VB. Endorses FM. No recent IC. No unusual activity. Had been taking care of her children as the [employer] states that she cannot work but she also cannot use the [employer]. Has had 2 uncomplicated prior deliveries at term. No other changes in health hx. Scheduled to take 3H GTT for abnormal glucola tomorrow am. hx: Initial US: @ 6.5wks gestation not consistent with LMP dating and gives MARIAM 01/27/2021 Hashimotos on levothyroxine 175 mcg O pos/Rubella immune VZV- immune Genetic testing: Quad wnl FAS: BOY FAS wnl CL 4.0 3VC EFW 64%ile Glucola 146 Hypothyroid- levels 1st trimester (2.2)2nd trimester (0.06)/3rd trimester. Levothyroxine 175 mcg daily Flu: 06/26/20 TDAP given 11/14 GBS & GC/CT at 36 weeks HSV: denies self and partner Breast pump Rx MOD: x2. FOB [place]. pp contraception: desires BTL, Consent completed (11/14/20) PAP: 06/26/2020 Menstrual History: LMP (date): 08/27/2018 EDC by LMP: 06/03/2019 [facility] Working EDC: 07/04/2019 Menses interval: 28 days Menstrual flow: 3-4 days Date of positive (+) home preg. test: 10/22/2018 Past Medical History: Reviewed and updated today: Thyroid disorder Headache/Migraine Hypothyroidism Past Surgical History: Reviewed and updated today: Adnoids removed with tonsills (2010) Sinus surgery (2009) Family History Summary: Family History of Thyroid Disorder for Mother - Entered On: 04/19/2019 Family History of Diabetes for Brother - Entered On: 04/19/2019 Family History of Lung Cancer for Paternal Grandfather - Entered On: 04/19/2019 Legacy Family History Notes: Mother - ovarian cysts History - Past Medical History Cardiovascular: reports: None Respiratory: reports: None Neuro: reports: None Endocrine/Autoimmune: reports: HyPOthyroidism GI: reports: None PROPERTY MANAGEMENT ASSISTANT: reports: None : reports: None HEENT: reports: None Psych: reports: None Musculoskeletal: reports: None Derm: reports: None MRSA Hx?: No - Past Surgical History HEENT: reports: Tonsil/Adenoidectomy - POLST Patient has POLST: No Meds/Allgy - Home Medications Home Medications: Ambulatory Orders Medication Instructions Recorded Confirmed Levothyroxine Sodium [Synthroid] 150 mcg ORAL QDAC 10/02/19 10/02/19 Ondansetron Odt [Zofran] 4 mg TL Q6H PRN #10 tablet 10/02/19 methocarbamoL [Methocarbamol] 500 mg PO DAILY PRN 10/02/19 10/02/19 - Allergies Allergies/Adverse Reactions: Allergies Allergy/AdvReac Type Severity Reaction Status Date / Time No Known Drug Allergies Allergy Verified 07/21/20 16:53 Review of Systems - Other Findings Other Findings: As per HPI, otherwise remaining systems are negative Exam - Vital Signs Reviewed Vital Signs: Yes Vital Signs: Vital Signs x48h Temp Pulse Resp BP 11/16/20 19:54 98.2 F 94 18 110/73 - Physical Exam General Appearance: positive: No acute distress Respiratory: positive: No respiratory distress, Breath sounds nml Cardiovascular: positive: Regular rate & rhythm Abdomen: positive: Other (gravid, S&NT/ND) Back: positive: Nml inspection Skin: positive: Color nml Extremities: positive: Non-tender, No pedal edema Neurologic/Psychiatric: positive: Oriented x3 Comments/Other: FORMAL US PERFORMED: Prelim read showed CL 2.7 cm, GIOVANNI wnl, vertex with head well applied to cervix FFN negative UA wnl EFM 140 mod afia 15x15 accels no decels TOCO: irreg GBS and GCCT/trich pending SVE /60/-2/med/mid Conclusion/Plan - Lab Results Lab results reviewed: Yes - Diagnostic Imaging Results Diagnostic Imaging Results: positive: Prelim report reviewed, Read independently - Other Other Results/Comments: 30 yo at 29+5 wga with contractions C/F PTL: -SVE 60/-2/med/mod -FFN neg -Prelim CL 2.7 Reviewed data with patient. FFN reassuring but CL less than 3.0 cm with symptomatic contractions concerning Reviewed recommendations for overnight observation Patient in agreement -Give BMZ 12 mg IM x1 -terbutaline 0.25 mcg SQ x1 -Diphenhydramine for sleep -Patient desires fluid bolus over oral hydration; LR bolus in progress. GBS and GCCT pending Will hold on GBS ppx give mild contraction pattern, low concern for imminent dleivery Will delay 3H GTT for one week given anticipated steroid affect NST in am, restart toco with increasing intensity or frequency of contractions. FWB: vertex, Cat I tracing, GBS pending -BMZ 12 mg IM x1 now and with repeat in 24 hours -GBS pending -CAT I tracing/AGA -repeat NST in amm Observe overnight with plan to DC in am and return for 2nd dose BMZ tomorrow night or morning after. Patient was seen face to face but this provider, who performed exam, reviewed records, independently reviewed DI imaging while exam in progress.
[2020-11-16] MEDS ORDERED: LACTATED RINGERS 1,000 ML IV SCH (23:00)
[2020-11-16] MEDS ORDERED: BETAMETHASONE 30 MG/5 ML VIAL IM SCH (23:45)
[2020-11-17] MEDS: ACETAMINOPHEN 500 MG TABLET PO PRN ×2 (00:36→07:45)
[2020-11-17 07:13] VITALS: BP 113/71
--- NOTE | 2020-11-17 08:06 | Ultrasound Report ---
PROCEDURE: OB Transvaginal INDICATIONS: contractions TECHNIQUE: Transvaginal OB ultrasound FINDINGS/ IMPRESSION: The transvaginal images which were obtained and are located in a separate OB ultrasound examination i n PACS. Please see the report for this study for complete discussion of findings. Reviewed by: Tristian Morris MD on 11/17/2020 8:04 AM PDT Approved by: Tristian Morris MD on 11/17/2020 8:04 AM PDT Station ID: [id number]
--- NOTE | 2020-11-17 08:10 | Ultrasound Report ---
PROCEDURE: OB Limited INDICATIONS: contractions OUTSIDE/PRIOR DATING DATA: Last menstrual period (LMP): 04/02/2020. LMP-based estimated date of delivery (MARIAM): 01/07/2021. First dating scan (date and location): 06/08/2020. Estimated date of delivery (MARIAM) from first dating scan: 01/27/2021. TECHNIQUE: Real-time scanning was performed of the fetus, with image documentation. Endovaginal scanning: Performed COMPARISON: None. FINDINGS: A single living intrauterine gestation is present. Presentation: Cephalic Placenta: Placental position is posterior, without previa. Amniotic fluid index: 12 cm, normal for gestational age. heart rate: 144 beats per minutes. Maternal cervical canal: 2.7 cm long; normal length is 2.5 cm or more. Estimated gestational age from initial scan: 29 weeks 5 days. IMPRESSION: Single live intrauterine gestation with no acute finding. Reviewed by: Tristian Morris MD on 11/17/2020 8:08 AM PDT Approved by: Tristian Morris MD on 11/17/2020 8:08 AM PDT Station ID: [id number]
--- NOTE | 2020-11-17 10:28 | PROVIDER PROGRESS NOTE ---
Subjective - Prog Note Date Prog Note Date: 11/17/20 Prog Note Time: 10:25 - Subjective Subjective: Patient has not had contractions this am. No LOF or VB. Endorses FM. GUTIERREZ improved with tylenol. Objective - Vital Signs/Intake & Output Reviewed Vital Signs: Yes Vital Signs: Vital Signs x48h Temp Pulse Resp BP Pulse Ox 11/17/20 07:12 98.6 F 91 16 113/71 99 - Lab Results Other Labs: Lab Results x24hrs 11/16/20 11/16/20 Range/Units 20:28 19:50 Urine Color YELLOW Urine Clarity CLEAR (CLEAR) Urine pH 6.0 (5.0-7.5) PH Ur Specific Hiram 1.020 (1.002-1.030) Urine Protein NEGATIVE (NEGATIVE) mg/dL Urine Glucose (UA) NEGATIVE (NEGATIVE) mg/dL Urine Ketones NEGATIVE (NEGATIVE) mg/dL Urine Occult Blood NEGATIVE (NEGATIVE) Urine Nitrite NEGATIVE (NEGATIVE) Urine Bilirubin NEGATIVE (NEGATIVE) Urine Urobilinogen 0.2 (NORMAL) (NORMAL) E.U./dL Ur Leukocyte Esterase NEGATIVE (NEGATIVE) Ur Microscopic Review NOT INDICATED Urine Culture Comments NOT INDICATED Fibronectin NEGATIVE (NEGATIVE) - Other Results/Comments Other Results/Comments: GEN: NAD HEENT: NCAT CV: RR RESP: nl effort ABD: gravid, S&NT/ND EXT: no LE edema PSYCH appropriate affect NEURO: A&O 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
--- NOTE | 2020-11-17 10:33 | Discharge Plan ---
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 No Smoking: If you smoke, Please STOP! Call for help. Follow-up with: Taylor Vernon MD [Primary Care Provider] -
[2020-11-17 20:53] LABS: CHLAMYDIA TRACHOMATIS DNA NEGATIVE (NEGATIVE); NEISSERIA GONORRHOEAE DNA NEGATIVE (NEGATIVE); TRICHOMONAS VAGINALIS DNA NEGATIVE (NEGATIVE)
[2020-11-17] MEDS ORDERED: BETAMETHASONE 30 MG/5 ML VIAL IM ONE (23:30)
== END 2020-11-17 10:38 | disposition home or self-care (01) ==
LOC: WFO 19:44 → FBP 19:44 → WFO 22:23
PROVIDERS: ADMIT Obstetrics & Gynecology; ATTEND Obstetrics & Gynecology
DX: O47.03 False labor before 37 completed weeks of gestation, third trimester (principal); O99.283 Endocrine, nutritional and metabolic diseases complicating pregnancy, third trimester; E06.3 Autoimmune thyroiditis; Z3A.29 29 weeks gestation of pregnancy
CPT/HCPCS: 59025; 76815; 76817; 81003; 82731; 87081; 87491; 87591; 87661; 96372; 99212; A9270; G0378; J7120; 81001; 87086

== ENCOUNTER 2020-11-17 22:04 | Outpatient (CLI) | payer OTHER ==
[2020-11-17] MEDS ORDERED: BETAMETHASONE 30 MG/5 ML VIAL IM ONE (22:09)
== END 2020-11-17 22:05 | disposition home or self-care (01) ==
LOC: WFO 22:04
PROVIDERS: ATTEND Obstetrics & Gynecology
DX: O60.03 Preterm labor without delivery, third trimester (principal); O26.873 Cervical shortening, third trimester; Z3A.29 29 weeks gestation of pregnancy

== ENCOUNTER 2020-11-22 07:08 | Outpatient (CLI) | payer OTHER ==
[2020-11-22 07:40] LABS: GTT GLUCOSE,FASTING 94 mg/dL (70-100)
== END 2020-11-22 07:09 | disposition home or self-care (01) ==
LOC: LAB 07:08
PROVIDERS: ATTEND Obstetrics & Gynecology
DX: O99.810 Abnormal glucose complicating pregnancy (principal)
CPT/HCPCS: 36415; 82951; 82952

== ENCOUNTER 2020-11-28 19:00 | Outpatient (CLI) | payer OTHER ==
[2020-11-28 19:14] VITALS: BP 107/67
[2020-11-28 20:24] LABS: BILIRUBIN,URINE NEGATIVE (NEGATIVE); GLUCOSE, URINE (UA) 100 mg/dL (NEGATIVE); KETONES,URINE (UA) TRACE mg/dL (NEGATIVE); LEUKOCYTE ESTERASE, URINE NEGATIVE (NEGATIVE); NITRITE,URINE NEGATIVE (NEGATIVE); OCCULT BLOOD,URINE NEGATIVE (NEGATIVE); PH,URINE 6.5 PH (5.0-7.5); PROTEIN,URINE NEGATIVE (NEGATIVE); UROBILINOGEN,URINE 0.2 (NORMAL) E.U./dL (NORMAL)
[2020-11-28 20:26] LABS: CLARITY,URINE CLEAR (CLEAR)
[2020-11-28 20:41] LABS: RBC,URINE None Seen /HPF (0-5); SQUAMOUS EPITHELIAL CELL,UR RARE Squamous (<= Few); WBC,URINE 0-3 /HPF (0-5)
[2020-11-28 20:42] LABS: BACTERIA,URINE Rare /HPF (None Seen)
[2020-11-28 23:47] LABS: CHLAMYDIA TRACHOMATIS DNA NEGATIVE (NEGATIVE); NEISSERIA GONORRHOEAE DNA NEGATIVE (NEGATIVE); TRICHOMONAS VAGINALIS DNA NEGATIVE (NEGATIVE)
--- NOTE | 2020-11-29 11:12 | PROCEDURE REPORT ---
- HPI Diagnosis/Indication for NST: Other (ABDOMinal painin 3rd trimester) Current EDU 01/27/21 Gestation 31 Weeks and 3 Days 3 Para 2 Vital Signs Temperature 97.9 F 11/28/20 19:10 Heart Rate 108 H 11/28/20 19:10 Respiratory Rate 20 11/28/20 19:10 Blood Pressure 107/67 11/28/20 19:10 O2 Saturation 99 11/28/20 19:10 Temperature 97.9 F 11/28/20 19:10 Heart Rate 108 H 11/28/20 19:10 Respiratory Rate 20 11/28/20 19:10 Blood Pressure 107/67 11/28/20 19:10 O2 Saturation 99 11/28/20 19:10 - NST Procedure NST Procedure Start Date 11/28/20 Start Time 19:07 Stop Time 19:37 Vibroacoustic Stimulation Used No Patient States Movement Yes - Results and Plan Findings/Impression: Baseline: BPM 140 Variability: Moderate Accelerations: Present Decelerations: Absent Trends in FHR over time: no changes [place] contractions in 10 minutes: 0 Impression: reactive Category 1 NST Pt called ahead complaining of vaginal pressure. No bleeding or leaking. Hx of at term x2. [place] without contractions. SVE 1cm and pt is a multip. Normal testing including UA, neg FFN, neg gc/ct, normal wet mount. labor precautions given, return PRN contractions present. Not seen by MD.
== END 2020-11-28 20:50 | disposition home or self-care (01) ==
LOC: WFO 19:00 → FBP 19:01 → WFO 20:50
PROVIDERS: ATTEND Obstetrics & Gynecology
DX: O99.891 Other specified diseases and conditions complicating pregnancy (principal); R10.9 Unspecified abdominal pain; Z3A.31 31 weeks gestation of pregnancy
CPT/HCPCS: 81001; 82731; 87086; 87210; 87491; 87591; 87661; 99214

== ENCOUNTER 2020-12-13 14:51 | Outpatient (CLI) | payer OTHER ==
[2020-12-13 15:05] VITALS: BP 121/72
[2020-12-13] MEDS ORDERED: TERBUTALINE 1 MG/ML VIAL SUBQ ONE (16:10)
[2020-12-13 16:26] LABS: BILIRUBIN,URINE NEGATIVE (NEGATIVE); GLUCOSE, URINE (UA) NEGATIVE (NEGATIVE); KETONES,URINE (UA) NEGATIVE (NEGATIVE); LEUKOCYTE ESTERASE, URINE NEGATIVE (NEGATIVE); NITRITE,URINE NEGATIVE (NEGATIVE); OCCULT BLOOD,URINE NEGATIVE (NEGATIVE); PH,URINE 7.5 PH (5.0-7.5); PROTEIN,URINE NEGATIVE (NEGATIVE); UROBILINOGEN,URINE 0.2 (NORMAL) E.U./dL (NORMAL)
[2020-12-13 16:35] LABS: CLARITY,URINE HAZY (CLEAR)
--- NOTE | 2020-12-13 16:43 | PREOP HISTORY & PHYSICAL ---
DATE OF SERVICE: 12/13/2020 Physician: Michel Mendoza MD IDENTIFICATION: Patient is a 30-year-old G3, P2 female whose EDC is 01/27. This is by early ultrasound and early examinations. CHIEF COMPLAINT: Contraction. HISTORY OF PRESENT ILLNESS: Patient states that at roughly 7:00 last evening she developed contractions, which continued until about 1:00 in the morning, at which time she fell asleep. At 11:00, they recurred. They have been off and on with an intervening amount of intensity. She denies any loss of fluid. She notes good motion. She denies any pelvic pressure. Of note is the fact that on 11/16 she came in with similar complaints. At that time, her cervix was noted to be 1 cm, 60% effaced, -2, mid to moderate. She was seen again in the clinic, at which time she was felt to be 25% effaced. She has been at home at bedrest because of COVID. She does have 2 children to take care of. One is a 1-1/2-year-old and the other is a 6-year-old. OB labs show her to be O positive, rubella immune. She had a 50-gram Glucola, which was 149. However, a 3-hour GTT was 94/156/42/96. She does have a history of having 2 infants, one at 3800 grams, the other at 4100 grams. Both of these were delivered vaginally. PHYSICAL EXAM: GENERAL: Patient is a well-developed, well-nourished female. She is in no acute distress at this time. She is having some intermittent contractions. HEENT: Pupils equal, round. Extraocular muscles intact. NECK: Thyroid is not palpably enlarged. HEART: Regular rate and rhythm without murmurs. LUNGS: Lung guillen are clear without rales or wheezes. BACK: No spinal or CVA tenderness. PELVIC: Speculum examination shows no evidence of fluid loss. A FFN was obtained as well as a group B strep culture. The cervix was palpated and noted to be 1 cm. It was about 50% effaced. Infant head was about a -3. Cervix was mid positioned and soft. There was no evidence of any ruptured membranes. IMPRESSION: A 30-year-old 3, para 2 female at 33.4 weeks. contractions. History of contractions in the past. She has already received betamethasone. Her previous FFN was also noted to be negative. She is having contractions, which are spacing out over time. We will obtain a GBS and FFN as well as a urinalysis. If there are signs of a urinary tract infection, we will treat. We will also administer terbutaline 0.25 mg subcutaneous. Lab: FFN negative UA negative Pt was sent home with instructions. Re contractions Keep Appointment next week follow up sooner if needed. TD: 12/13/2020 16:42 LUCY
[2020-12-13 16:49] LABS: AMORPHOUS SEDIMENT,UR Moderate /LPF; BACTERIA,URINE Rare /HPF (None Seen); RBC,URINE None Seen /HPF (0-5); SQUAMOUS EPITHELIAL CELL,UR RARE Squamous (<= Few); WBC,URINE 0-3 /HPF (0-5)
== END 2020-12-13 17:20 | disposition home or self-care (01) ==
LOC: WFO 14:51 → FBP 14:53 → WFO 17:20
PROVIDERS: ATTEND Obstetrics & Gynecology
DX: O47.03 False labor before 37 completed weeks of gestation, third trimester (principal); Z3A.33 33 weeks gestation of pregnancy
CPT/HCPCS: 81001; 82731; 87086; 87797; 96372; 99213; 99214

== ENCOUNTER 2021-01-01 16:45 | Outpatient (CLI) | payer OTHER | END 2021-01-01 23:59 | disposition home or self-care (01) | LOC: LAB.R 16:45 | PROVIDERS: ATTEND Obstetrics & Gynecology | DX: Z36.85 Encounter for antenatal screening for Streptococcus B (principal) | CPT/HCPCS: 87797 ==

== ENCOUNTER 2021-01-09 11:39 | Outpatient (CLI) | payer OTHER ==
[2021-01-09 11:53] VITALS: BP 112/76
--- NOTE | 2021-01-10 17:40 | PROCEDURE REPORT ---
- HPI Diagnosis/Indication for NST: Other (Labor assessment) Current EDU 01/27/21 Gestation 37 Weeks and 3 Days 3 Para 2 Vital Signs Temperature 99.1 F 01/09/21 11:52 Heart Rate 111 H 01/09/21 11:52 Respiratory Rate 16 01/09/21 11:52 Blood Pressure 112/76 01/09/21 11:52 O2 Saturation 97 01/09/21 11:52 Temperature 99.1 F 01/09/21 11:52 Heart Rate 111 H 01/09/21 11:52 Respiratory Rate 16 01/09/21 11:52 Blood Pressure 112/76 01/09/21 11:52 O2 Saturation 97 01/09/21 11:52 - NST Procedure NST Procedure Start Date 01/09/21 Start Time 11:47 Stop Time 12:16 Vibroacoustic Stimulation Used No Patient States Movement Yes EFM 135 mod afia 15x15 accels no decels, VAS induced TOCO: irreg SVE 3.6/60/-1 Unchanged over serial exams - Results and Plan Findings/Impression: 30 yo at 37+ 3 wga here with painful contractions CAT I tracing No change in SVE over serial exams Membranes intact DC to home with warning signs reviewed DX: IUP at 37+3 wga False labor
== END 2021-01-09 13:45 | disposition home or self-care (01) ==
LOC: WFO 11:39 → FBP 11:42 → WFO 13:45
PROVIDERS: ATTEND Obstetrics & Gynecology
DX: O47.1 False labor at or after 37 completed weeks of gestation (principal); Z3A.37 37 weeks gestation of pregnancy
CPT/HCPCS: 59025; 99213

== ENCOUNTER 2021-01-13 09:47 | Inpatient (IN) | payer OTHER ==
--- NOTE | 2021-01-13 10:47 | HISTORY & PHYSICAL EXAMINATION ---
Admit History - Visit Reason Visit Reason: Contractions - : 3 Parity: 2 Care: positive: [facility] Risk/History: negative: Other (History of 2 macrosomic infants.) Complications This : positive: None Smoking Status: Never smoker (Quit 9 months ago) - Mother's Labs Mother's Blood Type: positive: O Mother's RH: positive: Positive GBS: positive: Group B Step Negative Rubella Status: positive: Immune - Other Maternal History Other Maternal History: Identification: Patient is a 30-year-old G3, P2 female whose EDC is 27 January this makes her 38 weeks gestation. Chief complaint contractions History of the present illness. Patient states that throughout this week she has been having contractions off and on. She was seen in the clinic at which time her cervix was 3 cm. This morning her contractions became more strong at roughly 730 this morning they awakened her from sleep. She noted her contractions about every 2-1/2 minutes in interval. At +1 vertex presentation. Patient presented to labor and delivery her cervical check showed her to be 5 cm 90% patient's labor history is positive for prolonged labor with her last at 36 hours however she states she only had a 15-minute second stage.Started at [facility] OB care 9 weeks EGA she has had regular visits because of a history of macrosomic infant she had a 50 g Glucola which was noted to be within normal limits. Her additional labs are noted to be normal she is GBS positive. Patient's history is positive for Hypothyroidism. She also has some difficulty with depression for which she receives magnesium as well as sertraline. Meds/Allgy - Home Medications Home Medications: Ambulatory Orders Medication Instructions Recorded Confirmed Levothyroxine Sodium [Synthroid] 150 mcg ORAL QDAC 10/02/19 10/02/19 Ondansetron Odt [Zofran] 4 mg TL Q6H PRN #10 tablet 10/02/19 methocarbamoL [Methocarbamol] 500 mg PO DAILY PRN 10/02/19 10/02/19 - Allergies Allergies/Adverse Reactions: Allergies Allergy/AdvReac Type Severity Reaction Status Date / Time No Known Drug Allergies Allergy Verified 07/21/20 16:53 Physical - Abdominal Exam Vital Signs: Temp Pulse Resp BP Pulse Ox 37.3 C 110 H 20 113/80 98 01/13/21 09:55 01/13/21 09:55 01/13/21 09:55 01/13/21 09:55 01/13/21 09:55 Contraction Intensity: positive: Moderate to strong Uterine Resting Tone: positive: Soft - Monitoring Strip Review: positive: Category I - Presentation Presentation: positive: Vertex - Vaginal Exam Membranes: positive: Membranes intact Dilation (in cm): 5 cm Effacement (%): 90% Station: positive: 1 Cervical Position: positive: Midposition - Speculum Exam Speculum Exam Performed: positive: No Plan for Labor - Plan For Labor I expect patient to be DC'd or transferred within 96 hours.: Yes Plan for Labor: Patient is requesting an epidural for labor. Rupture her membranes and anticipate vaginal delivery. At this point we plan to place the epidural
[2021-01-13] MEDS ORDERED: METHYLERGONOVINE 0.2 MG/ML VIAL IM PRN (11:03)
[2021-01-13] MEDS ORDERED: OXYTOCIN 10 UNIT/ML VIAL IM PRN (11:03)
[2021-01-13] MEDS ORDERED: OXYTOCIN/SODIUM CHLORIDE 500 ML IV PRN (11:03)
[2021-01-13] MEDS ORDERED: SODIUM CHLORIDE FLUSH 0.9% 10 ML SYRINGE IVP PRN (11:03)
[2021-01-13] MEDS ORDERED: miSOPROStoL 200 MCG TABLET BC PRN (11:03)
[2021-01-13] MEDS ORDERED: LIDOCAINE-MPF 1% 30 ML VIAL ID PRN (11:03)
[2021-01-13] MEDS ORDERED: TRANEXAMIC ACID IN NACL 1,000 MG/100 ML BAG IV PRN (11:03)
[2021-01-13] MEDS ORDERED: fentaNYL 100 MCG/2 ML VIAL IVP PRN (11:03)
[2021-01-13] MEDS ORDERED: ONDANSETRON 4 MG/2 ML VIAL IVP PRN ×2 (11:03→12:20)
[2021-01-13] MEDS ORDERED: CARBOPROST TROMETHAMINE 250 MCG/ML AMP IM PRN (11:03)
[2021-01-13 11:16] LABS: BASOPHILS # (AUTO) 0.1 10^3/uL (0.0-0.1); BASOPHILS % (AUTO) 0.5 %; EOSINOPHILS # (AUTO) 0.4 10^3/uL (0.0-0.7); EOSINOPHILS % (AUTO) 3.4 %; HCT - HEMATOCRIT 32.5 % (37.0-47.0); LYMPHOCYTES # (AUTO) 1.7 10^3/uL (1.5-3.5); LYMPHOCYTES % (AUTO) 13.6 %; MEAN CORPUSCULAR HEMOGLOBIN 25.6 pg (27.0-31.0); MEAN CORPUSCULAR HGB CONC 30.8 g/dL (32.0-36.0); MEAN CORPUSCULAR VOLUME 83.1 fL (81.0-99.0); MEAN PLATELET VOLUME 9.4 fL (7.9-10.8); MONOCYTES # (AUTO) 1.1 10^3/uL (0.0-1.0); MONOCYTES % (AUTO) 8.6 %; NEUTROPHILS # (AUTO) 8.9 10^3/uL (1.5-6.6); NEUTROPHILS % (AUTO) 71.5 %; PLT - PLATELET COUNT 249 10^3/uL (130-450); RED BLOOD COUNT 3.91 10^6/uL (4.20-5.40); RED CELL DISTRIBUTION WIDTH 15.8 % (12.0-15.0); WHITE BLOOD COUNT 12.5 x10^3/uL (4.8-10.8)
[2021-01-13] MEDS: LACTATED RINGERS 1,000 ML IV SCH ×2 (11:38→13:27)
[2021-01-13] MEDS ORDERED: ROPIVACAINE 0.2% 200 MG/100 ML BAG EP ONE (11:39)
[2021-01-13] MEDS ORDERED: NALBUPHINE 10 MG/ML AMP IVP PRN (12:20)
[2021-01-13] MEDS ORDERED: diphenhydrAMINE INJ 50 MG/ML VIAL IVP PRN (12:20)
[2021-01-13] MEDS ORDERED: ePHEDrine 50 MG/ML VIAL IVP PRN (12:20)
[2021-01-13] MEDS ORDERED: ROPIVACAINE 0.2% 200 MG/100 ML BAG EP PRN (12:20)
[2021-01-13] MEDS ORDERED: NALOXONE 0.4 MG/ML VIAL IVP PRN (12:20)
--- NOTE | 2021-01-13 12:20 | ANESTHESIA ---
Pre-Anesthesia VS, & Labs - Diagnosis active labor - Procedure labor epidural Vital Signs: Temp Pulse Resp BP Pulse Ox 37.3 C 110 H 20 113/80 98 01/13/21 09:55 01/13/21 09:55 01/13/21 09:55 01/13/21 09:55 01/13/21 09:55 Height: 5 ft 3 in Weight (kg): 87.09 kg Body Mass Index: 34.0 BMI Classification: Obese - Is Patient ?: Yes - Lab Results Current Lab Results: Laboratory Tests 01/13/21 10:45: WBC 12.5 H, RBC 3.91 L, Hgb 10.0 L, Hct 32.5 L, MCV 83.1, MCH 25.6 L, MCHC 30.8 L, RDW 15.8 H, Plt Count 249, MPV 9.4, Neut # (Auto) 8.9 H, Lymph # (Auto) 1.7, Kimball # (Auto) 1.1 H, Eos # (Auto) 0.4, Baso # (Auto) 0.1, Absolute Nucleated RBC 0.00, Nucleated RBC % 0.0 01/13/21 10:45: Blood Type O POSITIVE, Antibody Screen NEGATIVE Fish Bones: 01/13/21 10:45 Home Medications and Allergies Active Medications Carboprost Tromethamine (Carboprost Tromethamine 250 Mcg/Ml Amp) 250 mcg IM Q15M PRN PRN Reason: Step 4: Hemorrhage protocol Stop: 01/18/21 11:04 Fentanyl (Fentanyl 100 Mcg/2 Ml Vial) 50 mcg IVP Q1H PRN PRN Reason: PAIN Lactated Ringer's (Lr) 1,000 mls @ 150 mls/hr IV .Q6H40M CHAGO Last Admin: 01/13/21 11:38 Dose: 150 mls/hr Documented by: Oxytocin/Sodium Chloride (Pitocin/Sodium Chloride) 500 mls @ 999 mls/hr IV PRN PRN; Protocol PRN Reason: POST- HEMORR PREVENTION Stop: 01/18/21 11:04 Tranexamic Acid (Tranexamic 1,000 Mg/100ml-Nacl) 1,000 mg in 100 mls @ 600 mls/hr IV .ONCE PRN PRN Reason: EBL >1200mL and within 3hr Stop: 01/18/21 11:04 Lidocaine HCl (Lidocaine-Mpf 1% 30 Ml Vial) 30 ml ID .ONCE PRN PRN Reason: PERINEAL REPAIR Stop: 01/18/21 11:04 Methylergonovine Maleate (Methylergonovine 0.2 Mg/Ml Vial) 0.2 mg IM .ONCE PRN PRN Reason: Step 2: Hemorrhage protocol Stop: 01/18/21 11:04 Misoprostol (Misoprostol 200 Mcg Tablet) 800 mcg BC .ONCE PRN PRN Reason: Step 3: Hemorrhage protocol Stop: 01/18/21 11:04 Ondansetron HCl (Ondansetron 4 Mg/2 Ml Vial) 4 mg IVP Q4H PRN PRN Reason: Nausea / Vomiting Oxytocin (Oxytocin 10 Unit/Ml Vial) 10 unit IM .ONCE PRN PRN Reason: Step one: If no IV access Stop: 01/18/21 11:04 Sertraline HCl (Sertraline 50 Mg Tablet) 100 mg PO DAILY CHAGO Sodium Chloride (Sodium Chloride Flush 0.9% 10 Ml Syringe) 10 ml IVP PRN PRN PRN Reason: NEEDED PER PROVIDER ORDERS Sodium Chloride (Sodium Chloride Flush 0.9% 10 Ml Syringe) 10 ml IVP 0100,0900,1700 CHAGO Levothyroxine Sodium [Synthroid] 150 mcg ORAL QDAC 10/02/19 methocarbamoL [Methocarbamol] 500 mg PO DAILY PRN 10/02/19 Allergies/Adverse Reactions: Allergies Allergy/AdvReac Type Severity Reaction Status Date / Time No Known Drug Allergies Allergy Verified 07/21/20 16:53 Anes History & Medical History - Anesthetic History Anesthesia Complications: reports: No previous complications Family history of Anesthesia Complications: Denies Family history of Malignant Hyperthermia: Denies - Medical History Cardiovascular: reports: None Pulmonary: reports: None Gastrointestinal: reports: None Urinary: reports: None Neuro: reports: None Musculoskeletal: reports: None Endocrine/Autoimmune: reports: HyPOthyroidism Blood Disorders: reports: None Skin: reports: None Smoking Status: Never smoker (Quit 9 months ago) - Surgical History Eyes Ears Nose Throat (EENT): reports: Tonsil/Adenoidectomy - Obstetrical History : 3 Parity: 2 Events: denies: Other (History of 2 macrosomic infants.) Complications: reports: None Exam General: Alert, Oriented x3, Cooperative Dental: WNL Mouth Openin Fingerbreadth Neck Mobility: Normal Mallampati classification: I Thyromental Distance: 4-6 cm Respiratory: Lungs clear Cardiovascular: Regular rate Plan Anesthesia Type: Epidural Consent for Procedure(s) Verified and Reviewed: Yes Code Status: Attempt Resuscitation ASA classification: 2-Mild systemic disease Is this case an emergency?: No
--- NOTE | 2021-01-13 12:23 | ANESTHESIA PROCEDURE NOTE ---
Anesthesia Epidural Template - Patient Report Patient Reports: positive: Pain controlled - Plan Plan: positive: Continue current management
--- NOTE | 2021-01-13 12:35 | CONSULTATION NOTE ---
Consultation Report: 1228 pt nauseaous with BP 91/54. epidural stopped, LR 500cc bolus started, zofran 4mg iv. 1234 epidural restarted at 8cc Q 45min, no continous dose, BP 110/74, pt claims nausea resolved
--- NOTE | 2021-01-13 13:59 | PROVIDER PROGRESS NOTE ---
Labor Progress Note - Uterine Monitoring Uterine Monitoring Mode: positive: External toco Contraction Frequency (min/apart): DIFFICULT TO DETECT Contraction Intensity: positive: Mild to moderate Uterine Resting Tone: positive: Soft - Monitoring Monitor Mode: positive: External ultrasound Heart Rate Variability: positive: Moderate (6-25 bmp) Accelerations: positive: Present, 15x15 Decelerations: positive: None Strip Review: positive: Category I - Vaginal Exam Dilation (in cm): 5 Effacement (%): 90% Station: 0 - Labor Progress Note Labor Progress Note/Additional Text: Moderate meconium encountered.AROM. Will have pen tester at delivery. Will await 1 to 2 hours if contractions do not ensue will initiate Pitocin.
--- NOTE | 2021-01-13 16:43 | CONSULTATION NOTE ---
Consultation Report: 1637 called to the bedside for increasing discomfort with contractions. BP stable. Epidural rate increased to 10cc Q45 min. next bolus set to be administered in 5 min. W Will see if pt becomes more comfortable with increased rate at that time. Will monitor pt's BP closely for next 30 min. Pt instructed to notify id she feels symptomatic with increased rate
[2021-01-13] MEDS ORDERED: SODIUM CHLORIDE FLUSH 0.9% 10 ML SYRINGE IVP SCH (17:00)
--- NOTE | 2021-01-13 17:20 | PROVIDER PROGRESS NOTE ---
Labor Progress Note - Uterine Monitoring Uterine Monitoring Mode: positive: External toco Contraction Frequency (min/apart): 2 Contraction Intensity: positive: Moderate to strong Uterine Resting Tone: positive: Soft - Monitoring Monitor Mode: positive: External ultrasound Heart Rate Baseline: 125 Heart Rate Variability: positive: Moderate (6-25 bmp) Accelerations: positive: Present, 15x15 Decelerations: positive: None Strip Review: positive: Category I - Vaginal Exam Dilation (in cm): 8 Effacement (%): 100% Station: 1 Cervical Position: Anterior - Labor Progress Note Labor Progress Note/Additional Text: Patient developed frequent strong contractions with her epidural in place and rupture of membranes. At this point I do not see any need for oxytocin.Patient is progressing well expect short second stage.
[2021-01-13] MEDS ORDERED: diphenhydrAMINE 25 MG CAPSULE PO PRN (18:22)
--- NOTE | 2021-01-13 18:30 | DELIVERY NOTE ---
Delivery Note - Labor Labor: positive: Augmented by ARM - Infant Delivery Method Infant Delivery Method: positive: Spontaneous vaginal delivery - Presentation Presentation: positive: Vertex, Compound (RIGHT HAND), MARYANN - left occiput anterior - Nuchal Cord Nuchal Cord: positive: None - Amniotic Fluid Description Amniotic Fluid Description: positive: Thick meconium (pEDS IN ATTENDENCE) - Episiotomy Type Episiotomy Type: positive: None - Laceration Laceration: positive: 1st degree, Perineal - Suture Suture Type: positive: Vicryl Suture Size: positive: 3-0 - Delivery Outcome Delivery Outcome: positive: Livebirth - [place] : positive: Placed in direct skin contact with mother, Bulb syringe, Stimulated [place] sex: positive: Male (APGARS 8/9) - Cord Cord: positive: 3 vessels - Placenta Placenta: positive: Intact, Spontaneous - Estimated Blood Loss Estimated Blood Loss (in cc): 200 - Post Delivery Events Post Delivery Events: positive: No post delivery events - Delivery Comments (Free Text/Narrative) Delivery Comments (Free Text/Narrative): This morning patient presented to labor and delivery at 5 cm 90% effaced +1 station. For this reason she was kept. Patient was requesting an epidural for labor analgesia so this was placed. Following this her membranes artificially ruptured at 1338. Moderate meconium was encountered at that time. She spontaneously accelerated in her labor and reached complete at 1741. delivery was set up for because she has a history of a short second stage she started to push at 1749. She pushed through 3 contractions and at 1754 a live male infant Apgars 8 and 9 was delivered left occiput anterior. The right arm was compound at time of delivery. We waited roughly a minute and a half before clamping the cord and dividing it. Baby was placed on the maternal abdomen dried and stimulated. Placenta followed at 1802 was inspected and noted to be intact. She was noted to have a first-degree perineal laceration which was repaired with a single suture of 3-0 Vicryl. Patient tolerated delivery well.
[2021-01-13] MEDS ORDERED: LACTATED RINGERS 1,000 ML IV SCH (19:00)
[2021-01-13] MEDS: IBUPROFEN 800 MG TABLET PO SCH (19:18)
[2021-01-13] MEDS: ACETAMINOPHEN 500 MG TABLET PO SCH (19:49)
[2021-01-13] MEDS ORDERED: SIMETHICONE CHEW 80 MG TABLET PO SCH (22:00)
[2021-01-13] MEDS: DOCUSATE SODIUM 100 MG CAPSULE PO SCH (23:16)
[2021-01-13] MEDS: oxyCODONE 5 MG TABLET PO PRN (23:16)
[2021-01-14] MEDS: IBUPROFEN 800 MG TABLET PO SCH ×3 (03:11→16:28)
[2021-01-14] MEDS: ACETAMINOPHEN 500 MG TABLET PO SCH ×2 (04:31→12:12)
[2021-01-14] MEDS: oxyCODONE 5 MG TABLET PO PRN ×4 (04:32→16:28)
[2021-01-14] MEDS: DOCUSATE SODIUM 100 MG CAPSULE PO SCH (08:12)
[2021-01-14] MEDS ORDERED: LEVOTHYROXINE 100 MCG TABLET PO SCH (08:15)
[2021-01-14] MEDS ORDERED: LEVOTHYROXINE 75 MCG TABLET PO SCH (08:15)
[2021-01-14] MEDS ORDERED: SERTRALINE 50 MG TABLET PO SCH (09:00)
--- NOTE | 2021-01-14 11:28 | PROVIDER PROGRESS NOTE ---
Subjective - Prog Note Date Prog Note Date: 01/14/21 Prog Note Time: 11:27 - Subjective Pt reports feeling: Improved Objective - Vital Signs/Intake & Output Vital Signs: Vital Signs x48h Temp Pulse Resp BP BP Pulse Ox 01/14/21 08:00 36.6 C 82 16 108/61 92 01/14/21 04:38 86 18 128/76 100 Intake & Output: Intake & Output 01/11/21 01/12/21 01/13/21 01/14/21 23:59 23:59 23:59 23:59 Intake Total 2232.5 640 Output Total 925 Balance 1307.5 640 - Objective General Appearance: positive: No acute distress, Alert Respiratory: positive: Chest non-tender, No respiratory distress Cardiovascular: positive: Regular rate & rhythm, No murmur Abdomen: positive: Non-tender, Mass (@U) Extremities: negative: Calf tenderness, Anjana's sign/cords - Lab Results Fish Bones: 01/13/21 10:45 Other Labs: Lab Results x24hrs 01/13/21 Range/Units 10:45 Blood Type O POSITIVE Antibody Screen NEGATIVE Assessment/Plan - Problem List (1) Compound presentation, delivered, current hospitalization Impression: She is breast-feeding.Patient is doing well at this time. At this point she anticipates discharge this afternoon. At time of delivery she was noted to have her right hand delivering at the same time as her shoulders. She suffered a first-degree laceration secondary to the this. Discharged medications: Oxycodone 5 mg #10 Motrin 800 mg #30 Colace 100 mg #30 Patient is to follow-up in the clinic in 1 week. She is discussed the issues of mastitis infection as well as contraception.
[2021-01-14 12:37] VITALS: BP 114/71
--- NOTE | 2021-01-14 18:44 | Labor Flowsheet ---
Labor Flowsheet Datetime Report Generated by CPN: 01/14/2021 18:44 Datetime: 01/14/2021 16:31 VITAL SIGNS NBP Sys/Evelin/Mean (mmHg): 119 : 67 : 78 Pulse: 75 Datetime: 01/14/2021 12:19 SpO2 (%): 99 Datetime: 01/13/2021 19:42 Membranes Ruptured Date/Time: 01/13/2021 13:38 Amniotic Fluid Odor: Normal Datetime: 01/13/2021 18:57 Stage of : Recovery Datetime: 01/13/2021 18:29 Respirations: 20 Datetime: 01/13/2021 18:02 MEDICATIONS Pitocin (milliunits): Started @ 999 Stage 2 Comments: placenta Datetime: 01/13/2021 18:00 Temperature (C): 37.2 Temperature Route: Oral Datetime: 01/13/2021 17:50 LaborFlag: Labor Datetime: 01/13/2021 17:49 STAGE 2 Pushing: Coached on Pushing Pushing Position: Pushing with Contractions Pushing Progress: Descent with Pushing Datetime: 01/13/2021 17:47 I/O Interventions: Marinelli Discontinued Patient Care Comments: 1650 clear yellow UOP Datetime: 01/13/2021 17:41 VAGINAL EXAM Dilatation (cm): 10.0 Effacement (%): 100 Station: 2 Exam by: Giem Datetime: 01/13/2021 17:10 Provider Notified (Name): Dr. Jensen Communication Comments: Notified provider pt 8cm Datetime: 01/13/2021 16:56 Cervix, Consistency: Soft Datetime: 01/13/2021 16:45 UTERINE ACTIVITY Monitor Mode: External Frequency (min): 2-3 Quality: Moderate Duration (sec): 50-150 Resting Tone (Palpate): Relaxed ASSESSMENT A Monitor Mode: Telemetry FHR Baseline Rate : 130 Variability: Moderate 6-25 bpm Accelerations: 15X15 Decelerations: None Category: Category I Datetime: 01/13/2021 16:31 PAIN Pain Scale: 4 Pain Presence: Intermittent Pain Type: Cramping; Contraction Pain Location: Abdomen Pain Assessment Comments: requesting anesthesia provider to come back COMMUNICATION Communication: Call/Page Placed to Provider Datetime: 01/13/2021 16:15 Pattern: Normal: <= 5 Contractions in 10 Minutes Datetime: 01/13/2021 15:45 Contraction Comments: coupling noted Datetime: 01/13/2021 15:15 Cervix, Position: Midposition Datetime: 01/13/2021 13:38 Membrane Status: Ruptured Membranes Rupture Method: Artificial Amniotic Fluid Color: Light Meconium Amniotic Fluid Amount: Scant Membrane Comments: moderate meconium on ROM Datetime: 01/13/2021 13:25 Medication Comments: LR 1000ml hung Datetime: 01/13/2021 13:12 Notification Reason: Status Update Datetime: 01/13/2021 12:30 Antiemetics/Antacids: Zofran (mg) @ 4 Datetime: 01/13/2021 12:27 PATIENT CARE IV/Blood Work: IV Bolus Started Datetime: 01/13/2021 12:11 Epidural Procedure Other: Pump Started Datetime: 01/13/2021 12:09 Patient Position/Activity: Left Tilt Datetime: 01/13/2021 12:07 Epidural Procedure: Loading Dose Datetime: 01/13/2021 11:50 Monitor Interventions for FHR: Ultrasound Adjusted Comments: coincidence w/maternal HR d/t patient positioning for epidural. RN remains @ bedside for US adjustments during procedure. 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
== END 2021-01-14 18:30 | disposition home or self-care (01) | DRG 807 ==
LOC: WFO 09:47 → FBP 09:49 → WFO 10:24 → FBP 10:28
PROVIDERS: ADMIT Obstetrics & Gynecology; ATTEND Obstetrics & Gynecology
PROC: 10E0XZZ Delivery of Products of Conception, External Approach (ICD-10-PCS; principal; 2021-01-13)
PROC: 0HQ9XZZ Repair Perineum Skin, External Approach (ICD-10-PCS; 2021-01-13)
PROC: 10907ZC Drainage of Amniotic Fluid, Therapeutic from Products of Conception, Via Natural or Artificial Opening (ICD-10-PCS; 2021-01-13)
DX: O99.284 Endocrine, nutritional and metabolic diseases complicating childbirth (principal); Z37.0 Single live birth; E03.9 Hypothyroidism, unspecified; O77.0 Labor and delivery complicated by meconium in amniotic fluid; O70.0 First degree perineal laceration during delivery; O32.6XX0 Maternal care for compound presentation, not applicable or unspecified; F32.9 Major depressive disorder, single episode, unspecified; Z3A.38 38 weeks gestation of pregnancy
CPT/HCPCS: 36415; 85025; 86850; 86900; 86901; 99213; A9270; J7120

== ENCOUNTER 2021-03-20 09:15 | Day surgery (SDC) | payer OTHER ==
[~2021-03-20 09:15] MED LIST: ACETAMINOPHEN 1,000 MG/100 ML 0 ML IV ONE; CELECOXIB 100 MG CAPSULE PO ONE; GABAPENTIN 400 MG CAPSULE ONE
[2021-03-20] MEDS ORDERED: ONDANSETRON 4 MG/2 ML VIAL IVP PRN (09:34)
[2021-03-20] MEDS ORDERED: MORPHINE 2 MG/ML CARPUJECT IVP PRN (09:34)
[2021-03-20] MEDS ORDERED: NALOXONE 0.4 MG/ML VIAL IVP PRN (09:34)
[2021-03-20] MEDS ORDERED: fentaNYL 100 MCG/2 ML VIAL IVP PRN (09:34)
[2021-03-20] MEDS ORDERED: ATROPINE ABBOJECT 1 MG/10 ML SYRINGE IVP PRN (09:34)
[2021-03-20] MEDS ORDERED: HYDROmorphone 0.5 MG/0.5 ML SYRINGE IVP PRN (09:34)
[2021-03-20] MEDS ORDERED: ACETAMINOPHEN 500 MG TABLET PO ONE (09:43)
[2021-03-20] MEDS ORDERED: ROCURONIUM 50 MG/5 ML VIAL ONE (09:49)
[2021-03-20] MEDS ORDERED: DEXAMETHASONE 4 MG/ML VIAL ONE (09:49)
[2021-03-20] MEDS ORDERED: PROPOFOL 200 MG/20 ML VIAL IVP ONE (09:49)
[2021-03-20] MEDS ORDERED: LIDOCAINE-MPF 2% 5 ML VIAL ONE (09:49)
[2021-03-20] MEDS ORDERED: MIDAZOLAM 2 MG/2 ML VIAL ONE (09:49)
[2021-03-20] MEDS ORDERED: BUPIVACAINE 0.5%-EPI 1:200000 PF 30 ML VIAL ONE (09:50)
[2021-03-20] MEDS ORDERED: LACTATED RINGERS 1,000 ML IV ONE ×2 (09:53→11:56)
[2021-03-20] MEDS ORDERED: LACTATED RINGERS 1,000 ML IV SCH (10:00)
[2021-03-20 10:16] LABS: BASOPHILS # (AUTO) 0.1 10^3/uL (0.0-0.1); BASOPHILS % (AUTO) 1.4 %; EOSINOPHILS # (AUTO) 0.8 10^3/uL (0.0-0.7); EOSINOPHILS % (AUTO) 14.9 %; HCT - HEMATOCRIT 39.4 % (37.0-47.0); LYMPHOCYTES # (AUTO) 1.9 10^3/uL (1.5-3.5); LYMPHOCYTES % (AUTO) 37.1 %; MEAN CORPUSCULAR HEMOGLOBIN 27.9 pg (27.0-31.0); MEAN CORPUSCULAR VOLUME 84.5 fL (81.0-99.0); MONOCYTES # (AUTO) 0.5 10^3/uL (0.0-1.0); MONOCYTES % (AUTO) 9.5 %; NEUTROPHILS # (AUTO) 1.9 10^3/uL (1.5-6.6); NEUTROPHILS % (AUTO) 36.9 %; PLT - PLATELET COUNT 248 10^3/uL (130-450); RED BLOOD COUNT 4.66 10^6/uL (4.20-5.40); RED CELL DISTRIBUTION WIDTH 15.5 % (12.0-15.0); WHITE BLOOD COUNT 5.2 x10^3/uL (4.8-10.8)
[2021-03-20] MEDS ORDERED: BUPIVACAINE 0.5%-EPI 1:200000 PF 30 ML VIAL SUBQ ONE ×3 (10:17→11:23)
--- NOTE | 2021-03-20 10:18 | ANESTHESIA ---
Pre-Anesthesia VS, & Labs - Diagnosis desires sterilization - Procedure lap salpingectomy Vital Signs: Temp Pulse Resp BP Pulse Ox 36.4 C L 74 18 95/62 96 03/20/21 09:35 03/20/21 09:35 03/20/21 09:35 03/20/21 09:35 03/20/21 09:35 Height: 5 ft 3 in Weight (kg): 74 kg Body Mass Index: 28.9 BMI Classification: Overweight - NPO >8 hours - Is Patient ?: No - Lab Results Current Lab Results: Laboratory Tests 03/20/21 10:08: WBC 5.2, RBC 4.66, Hgb 13.0, Hct 39.4, MCV 84.5, MCH 27.9, MCHC 33.0, RDW 15.5 H, Plt Count 248, MPV 10.0, Neut # (Auto) 1.9, Lymph # (Auto) 1.9, Delta # (Auto) 0.5, Eos # (Auto) 0.8 H, Baso # (Auto) 0.1, Absolute Nucleated RBC 0.00, Nucleated RBC % 0.0 03/20/21 09:58: POC Whole Bld Glucose 92 Fish Bones: 03/20/21 10:08 Home Medications and Allergies Home Medications: Ambulatory Orders Sertraline [Zoloft] 100 mg PO DAILY 03/20/21 Active Medications Atropine Sulfate (Atropine Abboject 1 Mg/10 Ml Syringe) 0.5 mg IVP Q5M PRN PRN Reason: Bradycardia Stop: 03/21/21 09:34 Fentanyl (Fentanyl 100 Mcg/2 Ml Vial) 25 - 50 mcg IVP Q5M PRN PRN Reason: BREAKTHROUGH PAIN (2nd Choice) Stop: 03/21/21 09:34 Hydromorphone HCl (Hydromorphone 0.5 Mg/0.5 Ml Syringe) 0.2 - 0.6 mg IVP Q5M PRN PRN Reason: PAIN (First Choice) Stop: 03/21/21 09:34 Lactated Ringer's (Lr) 1,000 mls @ 100 mls/hr IV .Q10H CHAGO Stop: 03/20/21 19:59 Morphine Sulfate (Morphine 2 Mg/Ml Carpuject) 2 - 4 mg IVP Q5M PRN PRN Reason: PAIN (3rd Choice) Stop: 03/21/21 09:34 Naloxone HCl (Naloxone 0.4 Mg/Ml Vial) 0.1 mg IVP Q2M PRN PRN Reason: RESP RATE <8 Stop: 03/21/21 09:34 Ondansetron HCl (Ondansetron 4 Mg/2 Ml Vial) 4 mg IVP ONCE PRN PRN Reason: N/V (First Choice) Stop: 03/21/21 09:34 Levothyroxine Sodium [Synthroid] 150 mcg ORAL QDAC 10/02/19 Sertraline [Zoloft] 100 mg PO DAILY 03/20/21 Allergies/Adverse Reactions: Allergies Allergy/AdvReac Type Severity Reaction Status Date / Time No Known Drug Allergies Allergy Verified 07/21/20 16:53 Anes History & Medical History - Anesthetic History Anesthesia Complications: reports: No previous complications - Medical History Cardiovascular: reports: None Pulmonary: reports: None Gastrointestinal: reports: None Urinary: reports: None Neuro: reports: None Musculoskeletal: reports: None Endocrine/Autoimmune: reports: HyPOthyroidism Blood Disorders: reports: None Skin: reports: None Smoking Status: Current every day smoker (Vapes) Psychosocial: reports: Depression, Anxiety, Alcohol (twice week, 2 drinks) History of Cancer?: No - Surgical History Eyes Ears Nose Throat (EENT): reports: Tonsil/Adenoidectomy Exam General: Alert, Oriented x3, Cooperative, No acute distress Dental: WNL (some missing) Mouth Openin Fingerbreadth Neck Mobility: Normal Mallampati classification: I Thyromental Distance: 4-6 cm Respiratory: Lungs clear, Normal breath sounds, No respiratory distress, No ac cessory muscle use Cardiovascular: Regular rate, Normal S1, Normal S2, No murmurs Mental/Cognitive Status: Alert/Oriented X3, Normal for patient Plan Anesthesia Type: General Consent for Procedure(s) Verified and Reviewed: Yes Code Status: Attempt Resuscitation ASA classification: 2-Mild systemic disease Is this case an emergency?: No
[2021-03-20 10:19] LABS: HCG UR QUAL NEGATIVE
[2021-03-20] MEDS ORDERED: LIDOCAINE 1% 50 ML MDV ONE (11:15)
[2021-03-20] MEDS ORDERED: LIDOCAINE 1% 50 ML MDV SUBQ ONE ×2 (11:23)
[2021-03-20] MEDS ORDERED: GLYCOPYRROLATE 1 MG/5 ML VIAL ONE (11:34)
[2021-03-20] MEDS ORDERED: NEOSTIGMINE 1 MG/1 ML 10 ML MDV ONE (11:34)
[2021-03-20] MEDS ORDERED: oxyCODONE 5 MG TABLET PO PRN (12:04)
--- NOTE | 2021-03-20 12:10 | OPERATIVE REPORT ---
Operative Report - General Procedure Date: 03/20/21 Planned Procedure: Laparoscopic bilateral salpingectomy Pre-Op Diagnosis: Desires sterilization Procedure Performed: Laparoscopic bilateral salpingectomy Post Op Diagnosis: Same - Procedure Note Primary Surgeon: Kacey Vernon MD Secondary Surgeon: Michel Mendoza MD Anesthesia Provider: Jed Wallace CRNA Anesthesia Technique: General ET tube Pathology: bilateral fallopian tubes, sent together as one specimen IV Fluids (mL): 900 Estimated Blood Loss (mL): 5 Urine Output (mL): 0 (Voided prior to procedure) Indications: Patient is a 30 yo who desires sterilization. Now 9 week s/p . Signed [facility] consents more than 30 days ago. Confirmed desire for sterilization today. Findings: Normal appearing uterus, fallopian tubes, and ovaries. Bilateral sidewall adhesions with normal appendix near right sided adhesions. Normal liver edge. Normal survey of abdomen and pelvis. Complications: none - Other Other Information/Narrative: Risks benefits and alternatives of the procedure were reviewed. Consent was again confirmed. Patient was brought to the operating room and underwent general anesthesia. She was placed in dorsal lithotomy position with legs resting in yellowfin stirrups. SCDs were in place and activated. She was then prepped and draped in the usual sterile fashion. Surgical timeout was performed. Bimanual exam was performed. Sterile speculum was placed. The cervix was visualized. The Humi uterine manipulator was placed. The base of the umbilicus was anesthetized with intradermal injection of 0.25% Marcaine. A 5 mm skin incision was made with a scalpel. A 5 mm blunt trocar was inserted under direct visualization using Visiport. Once the port was confirmed to be placed intraperitoneally, the abdomen was insufflated to 15 mmHg with CO2 gas Exploration of the abdomen and pelvis was confirmed that no injury was sustained with placement of the trocar. Two additional 5 mm ports were placed in the right and left lower quadrants, taking care to avoid the epigastric a rteries, while under direct visualization via laparoscopic guidance. The abdomen was explored with the laparoscope, with findings as noted. The left fallopian tube was grasped and elevated at the fimbriated end. The underlying mesosalpinx was sealed and resected to the insertion point on the uterine cornua using the Ligasure device. The tube was then sealed and transected at the insertion point at the cornua. The tube was removed from the pelvis through the lateral port. The procedure was repeated on the right side. Good hemostasis was noted. The abdomen was partially desufflated. Pedicles were observed under decreased pressure and good hemostasis was again confirmed. Abdomen was then completely desufflated. All instruments were removed from the abdomen. Skin was closed with interrupted subcuticular stitches using 4-0 Monocryl. Dermabond was applied over the suture sites. The Humi manipulator was removed from the uterus. Again, good hemostasis was noted. The final sponge needle and instrument counts were correct at completion of the procedure patient was awakened taken to the postanesthesia care unit in stable condition. Dr. Mendoza assisted with camera manipulation and retraction.
[2021-03-20] MEDS ORDERED: oxyCODONE 5 MG TABLET ONE (12:49)
[2021-03-20 13:20] VITALS: BP 107/76
--- NOTE | 2021-03-20 13:33 | ANESTHESIA POST OP EVALUATION ---
Anesthesia Post Eval - Post Anesthesia Eval Vitals: Last Vital Signs Temp 36.2 C L 03/20/21 13:20 Pulse 74 03/20/21 13:20 Resp 13 03/20/21 13:20 BP 107/76 03/20/21 13:20 Pulse Ox 98 03/20/21 13:20 CV Function Including HR & BP: Stable Pain Control: Satisfactory Nausea & Vomiting: Negative Mental Status: Baseline Respiratory Status: Airway Patent Hydration Status: Satisfactory Anesthesia Complications: None
== END 2021-03-20 09:16 | disposition home or self-care (01) ==
LOC: SDS 09:15
PROVIDERS: ATTEND Obstetrics & Gynecology
PROC: 0UT74ZZ Resection of Bilateral Fallopian Tubes, Percutaneous Endoscopic Approach (ICD-10-PCS; principal; 2021-03-20 10:45)
DX: Z30.2 Encounter for sterilization (principal); E06.3 Autoimmune thyroiditis; F17.290 Nicotine dependence, other tobacco product, uncomplicated; O99.345 Other mental disorders complicating the puerperium; F53.0 Postpartum depression; F90.9 Attention-deficit hyperactivity disorder, unspecified type; F41.9 Anxiety disorder, unspecified; G43.909 Migraine, unspecified, not intractable, without status migrainosus; H52.10 Myopia, unspecified eye; Z20.822 Contact with and (suspected) exposure to COVID-19; Z79.899 Other long term (current) drug therapy
CPT/HCPCS: 36415; 58661; 81025; 85025; 87635; A9270; J7120